=== PATIENT | female | born 1985 | race Caucasian/White ===

== ENCOUNTER 2018-11-24 12:07 | Inpatient (IN) ==
[2018-11-24] MEDS ORDERED: SODIUM CHLORIDE 0.9% 1000ML 1,000 ML IV SCH ×2 (12:30→17:30)
[2018-11-24] MEDS ORDERED: fentaNYL citrate 100 MCG/2 ML VIAL IV ONE (12:34)
[2018-11-24 13:11] LABS: Hematocrit (blood only) 35.1 % (37-47); Hemoglobin 11.7 g/dL (12.0-16.0); Mean Corpuscular Hgb Conc 33.3 g/dL (32-36); Mean Corpuscular Volume 87.3 fL (80-100); Platelet Count 212 K/uL (130-400); RDW Coefficient of Variation 12.8 % (11.5-14.5); RDW Standard Deviation 41.3 fL (36.4-46.3); Red Blood Count 4.02 M/uL (4.2-5.4); White Blood Count 24.83 K/uL (4.8-10.8)
[2018-11-24 13:23] LABS: Partial Thromboplastin Ratio 0.9; Partial Thromboplastin Time 23.4 Seconds (21.0-31.0); Prothrombin Time 10.6 Seconds (9.0-12.0)
[2018-11-24 13:34] LABS: Albumin Level 3.2 gm/dl (3.4-5.0); BUN Creatinine Ratio 38.4 (10-20); Creatinine Clr Calc Pharmacy 105.4 ml/min; Est GFR (African American) 117.6; Est GFR (Non-African American) 101.4; Potassium 2.7 mmol/L (3.5-5.1)
[2018-11-24 13:37] LABS: Albumin Globulin Ratio 0.8 (0.9-2); Bilirubin,Total 0.8 mg/dl (0.2-1); Globulin 4.1 gm/dl (2.5-4.0); Total Protein 7.3 gm/dl (6.4-8.2)
[2018-11-24 13:38] LABS: Basophils # (auto) 0.03 K/uL (0-0.2); Basophils % (auto) 0.1 %; Eosinophils # (auto) 0.02 K/uL (0-0.5); Eosinophils % (auto) 0.1 %; Immature Granulocytes # (auto) 0.09 K/uL (0.00-0.02); Immature Granulocytes % (auto) 0.4 %; Lymphocytes # (auto) 1.43 K/uL (1.2-3.4); Lymphocytes % (auto) 5.8 %; Monocytes % (auto) 3.6 %; Neutrophils # (auto) 22.36 K/uL (1.4-6.5)
[2018-11-24] MEDS ORDERED: POTASSIUM CHLORIDE 20 MEQ/15 ML UDC PO STA (13:59)
[2018-11-24] MEDS ORDERED: MoRPHine SULFATE 4 MG/ML 1 ML CARP\\VIAL IV STA (14:19)
[2018-11-24] MEDS ORDERED: POTASSIUM CHLORIDE 20 MEQ TABCR PO STA (15:15)
--- NOTE | 2018-11-24 15:31 | Emergency Department Note ---
Entered by Amy Fan acting as a scribe for History of Present Illness General Chief complaint: Nose Bleed (Minor) Stated complaint: nasal bleed Time Seen by Provider: 11/24/18 12:19 Source: patient History of Present Illness Provider complaint: Nosebleed Onset (ago): day(s) 2 Location: face Maximum Pain Intensity: 7 Associated symptoms: + other (denies: bowel movement sympoms, urinary symptoms) Treatments prior to arrival: other (Tylenol, allergy medicine) The patient is a 33 year old white female w/ PMHx of HTN and s/p sinus surgery who presents to the ED w/ CC of a intermittent nosebleed beginning 2 days ago. Her family reports the patient had sinus surgery 9 days ago. She was seen in the ED 2 days ago for a nosebleed, and Dr. Caro's office the following morning. Her nose began bleeding again today, 2.5 hours ago. She comes to the ED from Dr. Caro's office, who is at bedside. The patient denies bowel movement symptoms or urinary symptoms. Her LNMP was 3 weeks ago. The patient is not on any blood thinners. She took Tylenol and allergy medicine today. Home Medications Home Medications Medication Instructions Recorded Confirmed Type cetirizine [Zyrtec] 10 mg PO DAILY 11/23/18 11/24/18 History hydrochlorothiazide 25 mg PO DAILY 11/23/18 11/24/18 History magnesium 250 mg PO DAILY 11/23/18 11/24/18 History multivitamin 1 tab PO DAILY 11/23/18 11/24/18 History Allergies Allergy/AdvReac Type Severity Reaction Status Date / Time cefuroxime [From Ceftin] Allergy Intermediate Hives Verified 11/24/18 13:06 ciprofloxacin [From Cipro] Allergy Intermediate Hives Verified 11/24/18 13:06 doxycycline Allergy Intermediate Hives Verified 11/24/18 13:06 Penicillins Allergy Intermediate Hives Verified 11/24/18 13:06 shellfish derived Allergy Intermediate Hives Verified 11/24/18 13:06 sulfamethoxazole Allergy Intermediate Hives Verified 11/24/18 13:06 [From Bactrim] trimethoprim [From Bactrim] Allergy Intermediate Hives Verified 11/24/18 13:06 garlic Allergy Mild Rash Verified 11/24/18 13:06 Past Med/Surg History Medical History Epistaxis (Resolved) Surgical History H/O sinus surgery Social History Preferred Language: Cape Verdean Feels Safe at Home: Yes Smoking Status: Never smoker Review of Systems See HPI for pertinent positives & negatives. and A total of 10 systems reviewed and were otherwise negative Physical Exam Vital Signs Vital Signs - 24 hr 11/24/18 12:12 11/24/18 14:31 Temperature 36.9 C Temperature Source Oral Sepsis Recent Fever Within 48 Hours No Sepsis New/Unexplained Change in Mental Status No Sepsis Action Taken by Nursing No Action Required Pulse Rate 126 H Pulse Rate [Apical] 123 H Pulse Rhythm Regular Pulse Rhythm [Apical] Regular Pulse Strength Normal Pulse Strength [Apical] Normal Respiratory Rate 18 18 Respiratory Effort / Characteristics Non-Labored Spontaneous Non-Labored Spontaneous Respiratory Depth Normal Normal Respiratory Pattern Regular Regular Blood Pressure 132/95 Blood Pressure [Right Arm] 129/88 Blood Pressure Mean 107 Blood Pressure Mean [Right Arm] 101 Pulse Oximetry 97 99 Oxygen Delivery Method Room Air Room Air GENERAL: Uncomfortable in appearance, Mild distress EYE EXAM: Normal conjunctiva. PERRL, no anisocoria and EOM's grossly intact w/o pain. OROPHARYNX: Moist MM. No exudate, no tonsillar/uvular deviation or swelling. Congealed, darker blood in posterior oropharynx. No active streaming. Extensive packing within left nares, scant trace blood right nares. NECK: Supple, no nuchal rigidity, no adenopathy, non-tender. No signs of meningismus. LUNGS: Clear to auscultation. Normal chest wall mechanics. HEART: Tachycardic and regular, no MRG. ABDOMEN: Abdomen soft, non-tender, normo-active bowel sounds, no masses, no rebound or guarding. BACK: No CVA TTP. SKIN: No rashes and no bruising. UPPER EXTREMITIES: Upper extremities are grossly normal. LOWER EXTREMITIES: No pitting edema. No calf pain. NEURO EXAM: A and O x3. GCS 15. [Cranial nerves II-XII grossly intact, normal speech, 5/5 strength throughout] Moves all 4 extremities on command w/o issue. Course 1201: I discussed the case with Alvin Orozco ENT. 1228: The patient was evaluated in room C4, and a complete history and physical examination were performed. 1346: I reviewed the patient's case with Alvin Orozco ENT. 1356: I discussed the patient's case with Jamee Donohue PA-C, [facility]. She will evaluate the patient for further management. 1416: Upon reevaluation, the patient is resting. I discussed test results with the patient and her family. They verbalized agreement with the treatment plan. 1439: I discussed the case with Dr. Phillips, irrigator valve pipe. Consultations Consultation #1: Alvin Orozco ENT. Time: 12:01 Consultation #2: Jamee Donohue PA-C, [facility] hospitalist. Time: 13:56 Consultation #3: Dr. Phillips, irrigator valve pipe. Time: 14:39 Administered Medications Sodium Chloride (Nss 1000ml) 1,000 mls @ 100 mls/hr IV .Q10H UMER Stop: 11/24/18 22:29 Last Admin: 11/24/18 13:13 Dose: 100 mls/hr Documented by: [id number] Discontinued Medications Fentanyl Citrate (Fentanyl Citrate) 50 mcg IV NOW ONE Stop: 11/24/18 12:35 Last Admin: 11/24/18 13:13 Dose: 50 mcg Documented by: [id number] Morphine Sulfate (Morphine Sulfate) 4 mg IV NOW STA Stop: 11/24/18 14:20 Last Admin: 11/24/18 14:27 Dose: 4 mg Documented by: [id number] Potassium Chloride (Tlaita Ciel Elix) 40 meq PO NOW STA Stop: 11/24/18 14:00 Last Admin: 11/24/18 14:07 Dose: 40 meq Documented by: [id number] Medical Decision Making Medical Records Attestation: I reviewed the patient's medical records. Home Medications Current Medication List: was personally reviewed by me Laboratory Data Attestation: I reviewed the patient's lab results. Result diagrams: 11/24/18 12:39 11/24/18 12:39 Lab Results 11/24/18 11/24/18 11/24/18 Range/Units 12:39 12:39 12:39 WBC 24.83 H (4.8-10.8) K/uL RBC 4.02 L (4.2-5.4) M/uL Hgb 11.7 L (12.0-16.0) g/dL Hct 35.1 L (37-47) % MCV 87.3 (80-100) fL MCH 29.1 (25-34) pg MCHC 33.3 (32-36) g/dL RDW Std Deviation 41.3 (36.4-46.3) fL RDW Coeff of Alexander 12.8 (11.5-14.5) % Plt Count 212 (130-400) K/uL MPV 11.0 H (7.4-10.4) fL Immature Gran % (Auto) 0.4 % Neut % (Auto) 90.0 % Lymph % (Auto) 5.8 % [place] % (Auto) 3.6 % Eos % (Auto) 0.1 % Baso % (Auto) 0.1 % Immature Gran # (Auto) 0.09 H (0.00-0.02) K/uL Neut # (Auto) 22.36 H (1.4-6.5) K/uL Lymph # (Auto) 1.43 (1.2-3.4) K/uL [place] # (Auto) 0.90 H (0.11-0.59) K/uL Eos # (Auto) 0.02 (0-0.5) K/uL Baso # (Auto) 0.03 (0-0.2) K/uL PT 10.6 (9.0-12.0) Seconds INR 1.0 (0.9-1.1) APTT 23.4 (21.0-31.0) Seconds PTT Ratio 0.9 Sodium 140 (136-145) mmol/L Potassium 2.7 L (3.5-5.1) mmol/L Chloride 107 (98-107) mmol/L Carbon Dioxide 25 (21-32) mmol/L Anion Gap 9.0 (3-11) BUN 30 H (7-18) mg/dl Creatinine 0.77 (0.6-1.2) mg/dl Est Cr Clr Drug Dosing 105.4 ml/min Est GFR ( Amer) 117.6 Est GFR (Non-Af Amer) 101.4 BUN/Creatinine Ratio 38.4 H (10-20) Glucose 105 H (70-99) mg/dl Calcium 9.0 (8.5-10.1) mg/dl Total Bilirubin 0.8 (0.2-1) mg/dl AST 22 (15-37) U/L ALT 63 (12-78) U/L Alkaline Phosphatase 113 (45-117) U/L Total Protein 7.3 (6.4-8.2) gm/dl Albumin 3.2 L (3.4-5.0) gm/dl Globulin 4.1 H (2.5-4.0) gm/dl Albumin/Globulin Ratio 0.8 L (0.9-2) Blood Type Antibody Screen 11/24/18 Range/Units 12:39 WBC (4.8-10.8) K/uL RBC (4.2-5.4) M/uL Hgb (12.0-16.0) g/dL Hct (37-47) % MCV (80-100) fL MCH (25-34) pg MCHC (32-36) g/dL RDW Std Deviation (36.4-46.3) fL RDW Coeff of Alexander (11.5-14.5) % Plt Count (130-400) K/uL MPV (7.4-10.4) fL Immature Gran % (Auto) % Neut % (Auto) % Lymph % (Auto) % [place] % (Auto) % Eos % (Auto) % Baso % (Auto) % Immature Gran # (Auto) (0.00-0.02) K/uL Neut # (Auto) (1.4-6.5) K/uL Lymph # (Auto) (1.2-3.4) K/uL [place] # (Auto) (0.11-0.59) K/uL Eos # (Auto) (0-0.5) K/uL Baso # (Auto) (0-0.2) K/uL PT (9.0-12.0) Seconds INR (0.9-1.1) APTT (21.0-31.0) Seconds PTT Ratio Sodium (136-145) mmol/L Potassium (3.5-5.1) mmol/L Chloride (98-107) mmol/L Carbon Dioxide (21-32) mmol/L Anion Gap (3-11) BUN (7-18) mg/dl Creatinine (0.6-1.2) mg/dl Est Cr Clr Drug Dosing ml/min Est GFR ( Amer) Est GFR (Non-Af Amer) BUN/Creatinine Ratio (10-20) Glucose (70-99) mg/dl Calcium (8.5-10.1) mg/dl Total Bilirubin (0.2-1) mg/dl AST (15-37) U/L ALT (12-78) U/L Alkaline Phosphatase (45-117) U/L Total Protein (6.4-8.2) gm/dl Albumin (3.4-5.0) gm/dl Globulin (2.5-4.0) gm/dl Albumin/Globulin Ratio (0.9-2) Blood Type O Positive Antibody Screen NEGATIVE ECG Data Attestation: I personally reviewed and interpreted this ECG as follows: Indication: tachycardia Rate (beats per minute): 127 Rhythm: sinus tachycardia Findings: + other (normal intervals. normal axis. ) and + ST depression (mild, lateral) Blood Pressure Blood Pressure Findings: Normal blood pressure Blood Pressure Disposition: did not require urgent referral MDM Narrative The patient is a 33 year old white female w/ PMHx of HTN and s/p sinus surgery who presents to the ED w/ CC of a intermittent nosebleed beginning 2 days ago. Etiologies such as anterior epistaxis, coagulopathy, thrombocytopenia, traumatic injury, fracture, septal hematoma, infection, posterior epistaxis as well as other pathologies were entertained. Patient was seen and evaluated the bedside. The patient did have a recent septoplasty and has had intermittent but mildly persistent worsening nose bleeding over the last 3 days worse today seen in outpatient clinic where she did have posterior pack packing placement did present here. Patient was seen and evaluated the bedside along with the ear nose and throat physician Dr. Mandujano who had performed her outpatient procedure. The patient does have nasal packing in place to the left nares. There is scant blood from the right naris which may have initially come from the left side. The patient does have congealed blood within the posterior pharynx but no active streaming. The patient is not coughing or spitting up any blood. Patient did have blood work completed along with additional IVs and type and screen was obtained. The patient was given pain medication. The patient was tachycardic and does have some slight depressions in the lateral leads which are likely rate related as the patient is not complaining of any chest pain or shortness of breath the patient does not have any prior cardiac or lung history. The patient's blood work does show some mild anemia. Platelet count is normal. Patient does have an elevated white count. Given that the ear nose and throat physician has seen the patient he did not convey concern for infection at this time. Defer antibiotics as this may be a stress reaction given the patient's recent proced ure and associated persistent bleeding. The patient does have a low potassium which was repleted. A magnesium level was added. Coagulation studies are patient was given additional IV fluids. Patient was subsequently seen by the hospitalist. We did briefly discuss the patient's case with the irrigator valve pipe and after discussion we will place the patient in the PCU. Patient was admitted to medicine service. Impression & Plan Epistaxis, Acute hypokalemia Discharge Plan Visit Data Chief Complaint: Nose Bleed (Minor) Stated Complaint: nasal bleed ED Provider: Saw Meade Discharge Problem: Epistaxis, Acute hypokalemia Patient Disposition: Being Evaluated by Hospitalist Forms Stand Alone Forms: My [facility] Prescriptions Prescriptions: No Action multivitamin Tablet 1 tab PO DAILY RF: 0 cetirizine [Zyrtec] 10 mg Tablet 10 mg PO DAILY RF: 0 magnesium 250 mg Tablet 250 mg PO DAILY RF: 0 hydrochlorothiazide 25 mg Tablet 25 mg PO DAILY RF: 0 Referrals Referrals: Phylicia Shelton PA-C [Primary Care Provider] - The scribe's documentation has been prepared under my direction and personally reviewed by me in its entirety. I confirm that the note above accurately reflects all work, treatment, procedures, and medical decision making performed by me.
--- NOTE | 2018-11-24 15:37 | History & Physical Report ---
Date of Service November 24, 2018 Assessment & Plan (1) SIRS (systemic inflammatory response syndrome): (2) Epistaxis: (3) H/O sinus surgery: This is a 33-year-old female who has a significant past medical history of HTN, migraines, seasonal allergies, nephrocalcinosis, history of chronic left maxillary sinusitis and anterior ethmoidal sinusitis, hypertrophy of both inferior nasal turbinates, deviated septum who presents to [facility] ED secondary to epistaxis times 2 days. POD # 9 Nasal and Sinus Surgical Endoscopy using image guidance resulting in:Left anterior ethmoidectomy, Left maxillary sinusotomy with removal of tissue, Septoplasty, Bilateral inferior turbinate reduction by Dr. Caro Posterior Nasal Packing placed by ENT Discussed case with ENT Dr. Caro Discussed case with explosives handler Dr. Morrell/Paulo Gutiérrez PA-C In ED Received IVF x 1 L, IV Fentanyl and morphine for pain -admit pt to PCU -type and cross for [address] units of PRBC to place on hold if HGB < 8.0 -IV Clindamycin Q8hr given leucocytosis, posterior packing, tachycardia --> Pt meeting SIRS criteria -Resuscitation via IV hydration, normal saline +40 M EQ of KCl at 125 per/Hr -Trend H/H , bmp -Afrin to R nare 2 sprays bid to prevent R nare epistaxis -Face tent with cool humidified air for nasal moisture -IV morphine 4mg Q4h prn pain -IV APAP 1g scheduled TID (4) Acute hypokalemia: -Patient unable to tolerate potassium elixir while in ED -will order 40 meq KCl tablet p.o. x1 now and repeat at 9 PM -Further will add 40 M EQ to 1 L normal saline -Repeat BMP at 7 PM and in a.m. (5) HTN (hypertension): -hold HCTZ given hypovolemia/epistaxis and recent hypotension -Recommend decreasing HCTZ to 12.5mg at discharge with a follow up BMP given profound Hypokalemia (6) DVT prophylaxis: -SCDS/Teds Disposition: D/C to home when able Follow up: PCP Phylicia Shelton upon discharge Discussed case with Loft Rigger Dr Morrell/Paulo Gutiérrez PA-C, recommend PCU Patient was seen and examined in collaboration with Dr. Sneed Starting 11/25/18 patient will be under the care of Dr. Alexus Caro cell is [phone], contact with any changes or return of epistaxis not the centralized traffic control operator ENT History of Present Illness Chief Complaint: Epistaxis x 3 days. Primary Care Provider: Phylicia Shelton This is a 33-year-old female who has a significant past medical history of HTN, migraines, seasonal allergies, nephrocalcinosis, history of chronic left maxillary sinusitis and anterior ethmoidal sinusitis, hypertrophy of both inferior nasal turbinates, deviated septum who presents to [facility] ED secondary to epistaxis times 2 days. On 11/15/18 patient underwent left anterior ethmoidectomy, left maxillary sinusotomy, septoplasty and bilateral inferior turbinate reduction. She was doing well postoperatively until postop day #7. She followed up with Dr. Caro and had her septal splints removed. She underwent endoscopic sinus debridement. At the time left inferior turbinate had a removal of a clot with silver nitrate application to the turbinate. The nose was sprayed with Afrin and lidocaine spray. Moderate crusting at the left ethmoid and maxillary sinusotomy sites were noted. She subsequently developed epistaxis which required her to return to his office. Again bleeding had stopped, blood pressure was stable but she was mildly tachycardic. She returned home. Unfortunately pt returned to [facility] clinic today. Rapid response was called in office secondary to significantly low blood pressure 80s over 50s with heart rates above 150s and epistaxis per Dr. Caro. She had a posterior nasal packing placed in office by Dr. Caro and sent to ED for hospitalization. Currently patient is complaining of significant nasal discomfort, 07/31. For now the bleeding has ceased. Further she complains of sore throat, decreased appetite, poor p.o. intake over the past 48 hours. She denies any fever, chills, sweats, lightheadedness, dizziness, chest pain, shortness of breath, palpitations, nausea, emesis, abdominal pain, change in bowel or urinary habits. Family is at bedside and very concerned. Allergies Allergy/AdvReac Type Severity Reaction Status Date / Time cefuroxime [From Ceftin] Allergy Intermediate Hives Verified 11/24/18 13:06 ciprofloxacin [From Cipro] Allergy Intermediate Hives Verified 11/24/18 13:06 doxycycline Allergy Intermediate Hives Verified 11/24/18 13:06 Penicillins Allergy Intermediate Hives Verified 11/24/18 13:06 shellfish derived Allergy Intermediate Hives Verified 11/24/18 13:06 sulfamethoxazole Allergy Intermediate Hives Verified 11/24/18 13:06 [From Bactrim] trimethoprim [From Bactrim] Allergy Intermediate Hives Verified 11/24/18 13:06 garlic Allergy Mild Rash Verified 11/24/18 13:06 Home Medications Home Medications Medication Instructions Recorded Confirmed Type cetirizine [Zyrtec] 10 mg PO DAILY 11/23/18 11/24/18 History hydrochlorothiazide 25 mg PO DAILY 11/23/18 11/24/18 History magnesium 250 mg PO DAILY 11/23/18 11/24/18 History multivitamin 1 tab PO DAILY 11/23/18 11/24/18 History Past Med/Surg History Medical History HTN (hypertension) (Chronic) Nephrocalcinosis (Chronic) Chronic sinusitis (Chronic) Deviated septum (Chronic) Epistaxis (Resolved) Surgical History H/O sinus surgery (Chronic) 11/15/18 1) Nasal and Sinus Surgical Endoscopy using image guidance resulting in: A) Left anterior ethmoidectomy (85339) B) Left maxillary sinusotomy with removal of tissue (97782) #2) Septoplasty (71480) #3) Bilateral inferior turbinate reduction (80539-65) Family History Mother Hypertension Father Hypertension Sister Hypertension Stroke Social History Preferred Language: Malian Communication Ability: Effective Beliefs That Will Affect Care: None marital status details: Engaged Current Living Situation: Significant Other Other Information That Helps Us Care for You: No Feels Safe at Home: Yes Safety Concerns: Feels Safe At This Time Smoking Status: Never smoker Hx Alcohol Use: No Hx Substance Use: No Review of Systems All systems reviewed & are unremarkable except as noted in HPI & below Physical Exam Vital Signs (Past 24 Hours): Last Vital Signs Temp 36.9 C 11/24/18 12:12 Pulse 123 H 11/24/18 14:31 Resp 18 11/24/18 14:31 BP 129/88 11/24/18 14:31 Pulse Ox 99 11/24/18 14:31 Physical Exam: Gen: WD/WN, F, + distress secondary to pain/anxiety, lying in bed, pleasant, difficulty conversing given nasal packing Head: Normocephalic, Atraumatic Eyes: Sclera normal, no conjunctival injection, PERRLA, EOMI ENT: Gross hearing intact, + L nare nasal packing, mucous membranes dry Neck: supple, no adenopathy, No JVD, no bruit, Resp: Clear to auscultation b/l, no wheeze, rales, rhonchi. Normal insp/exp effort, no accessory muscle use CV: tachycardic rate, regular rhythm, no murmur, rub, gallop, or ectopy Abd: +BS x 4, soft, nontender, nondistended Musculoskeletal: moves extremities active rom x 4, strength intact, good drier feeder strength Extremities: No edema bilaterally Skin: warm, moist, no rash, negative turgor, cap refill < 2sec Neuro: Alert and oriented x 3, speech normal, good mood/affect, cran nerve 2-12 intact grossly : deferred Results & Data Laboratory Results Short CBC 11/24/18 Range/Units 12:39 WBC 24.83 H (4.8-10.8) K/uL Hgb 11.7 L (12.0-16.0) g/dL Hct 35.1 L (37-47) % Plt Count 212 (130-400) K/uL BMP 11/24/18 12:39 Sodium 140 Potassium 2.7 L Chloride 107 Carbon Dioxide 25 BUN 30 H Creatinine 0.77 Glucose 105 H Calcium 9.0 Liver Function 11/24/18 Range/Units 12:39 Total Bilirubin 0.8 (0.2-1) mg/dl AST 22 (15-37) U/L ALT 63 (12-78) U/L Alkaline Phosphatase 113 (45-117) U/L Albumin 3.2 L (3.4-5.0) gm/dl Medications Administered Sodium Chloride (Nss 1000ml) 1,000 mls @ 100 mls/hr IV .Q10H UMER Stop: 11/24/18 22:29 Last Admin: 11/24/18 13:13 Dose: 100 mls/hr Documented by: [id number] Discontinued Medications Fentanyl Citrate (Fentanyl Citrate) 50 mcg IV NOW ONE Stop: 11/24/18 12:35 Last Admin: 11/24/18 13:13 Dose: 50 mcg Documented by: [id number] Morphine Sulfate (Morphine Sulfate) 4 mg IV NOW STA Stop: 11/24/18 14:20 Last Admin: 11/24/18 14:27 Dose: 4 mg Documented by: [id number] Potassium Chloride (Talita Ciel Elix) 40 meq PO NOW STA Stop: 11/24/18 14:00 Last Admin: 11/24/18 14:07 Dose: 40 meq Documented by: [id number] ECG Rate (beats per minute): 127 Rhythm: sinus tachycardia Findings: + nonspecific-ST abn Code Status & VTE Plan Code Status Full Code VTE Prophylaxis Plan VTE Prophylaxis will be ordered: Yes Reason for no VTE drug order: Contraindicated Supervising Physician Co-Signing Physician Notes I have seen and examined the patient and have discussed the case with the provider above. I agree with the assessment and plan as stated. 33 yo F with epistaxis and significant pain that is uncontrolled. ENT packing in place. Dr. Caro has evaluated the patient. Physical exam is otherwise unremarkable. Will give oxycodone for additional pain meds now and change morphine to dilaudid. Cont APAP. Clinda for prophylaxis. IVF and potassium repletion PO. Will try to avoid IV potassium in light of its caustic nature. Suspect hypokalemia 2/2 HCTZ use. She was using losartan 25 in the past, and was switched in Jun 2018 to the HCTZ. She was given potassium supplements recently but had not started them. May consider going back on the losartan but just using a higher dose, or using a combination HCTZ/losartan or lis/HCTZ pill to avoid the need for extra supplement pills moving forward. DO Naren
[2018-11-24] MEDS ORDERED: ONDANSETRON INJ 2 MG/ML 2 ML VIAL IV PRN (16:36)
[2018-11-24] MEDS ORDERED: MoRPHine SULFATE 4 MG/ML 1 ML CARP\\VIAL IV PRN (16:36)
[2018-11-24] MEDS ORDERED: MAGNESIUM HYDROXIDE SUSP 30 ML UDC PO PRN (16:36)
[2018-11-24] MEDS ORDERED: POLYETHYLENE (MIRALAX) 17 GM PACK PO PRN (16:36)
[2018-11-24] MEDS ORDERED: ALUMINUM/MAGNESIUM SUSP 30 ML UDC PO PRN (16:36)
[2018-11-24] MEDS ORDERED: OXYCODONE HCL IR 5 MG TAB (IMMEDIATE RELEASE) PO STA (17:11)
[2018-11-24 17:17] LABS: Hematocrit (blood only) 31.4 % (37-47); Hemoglobin 10.5 g/dL (12.0-16.0)
[2018-11-24 17:38] LABS: BUN Creatinine Ratio 35.7 (10-20); Calcium 8.4 mg/dl (8.5-10.1); Creatinine Clr Calc Pharmacy 117.9 ml/min; Est GFR (African American) 133.2; Est GFR (Non-African American) 114.9
[2018-11-24] MEDS: POTASSIUM CHLORIDE 40 MEQ in SODIUM CHLORIDE 0.9% 1000ML 1,000 ML IV SCH (18:36)
[2018-11-24] MEDS: HYDROmorphone INJ 0.5 MG/0.5 ML SYR IV PRN ×2 (18:42→21:02)
[2018-11-24] MEDS: CLINDAMYCIN 600 MG in DEXTROSE 5% 50 ML IV SCH (18:44)
[2018-11-24] MEDS: OXYMETAZOLINE 0.05% 30 ML BTL SCH (20:51)
[2018-11-24] MEDS ORDERED: POTASSIUM CHLORIDE 20 MEQ TABCR PO ONE (21:00)
[2018-11-24] MEDS: OXYCODONE HCL IR 5 MG TAB (IMMEDIATE RELEASE) PO PRN (21:03)
[2018-11-24] MEDS: ACETAMINOPHEN 1,000 MG/100 ML VIAL IV SCH (21:41)
[2018-11-25] MEDS: HYDROmorphone INJ 0.5 MG/0.5 ML SYR IV PRN ×5 (01:32→20:39)
[2018-11-25] MEDS: CLINDAMYCIN 600 MG in DEXTROSE 5% 50 ML IV SCH ×3 (02:00→18:19)
[2018-11-25] MEDS: POTASSIUM CHLORIDE 40 MEQ in SODIUM CHLORIDE 0.9% 1000ML 1,000 ML IV SCH ×3 (02:20→20:40)
[2018-11-25] MEDS: ACETAMINOPHEN 1,000 MG/100 ML VIAL IV SCH ×3 (05:56→21:14)
[2018-11-25 07:33] LABS: Hematocrit (blood only) 26.6 % (37-47); Hemoglobin 8.9 g/dL (12.0-16.0); Mean Corpuscular Hgb Conc 33.5 g/dL (32-36); Mean Corpuscular Volume 87.8 fL (80-100); Mean Platelet Volume 10.7 fL (7.4-10.4); Platelet Count 180 K/uL (130-400); RDW Standard Deviation 42.1 fL (36.4-46.3); Red Blood Count 3.03 M/uL (4.2-5.4); White Blood Count 9.89 K/uL (4.8-10.8)
[2018-11-25 07:53] LABS: BUN Creatinine Ratio 32.6 (10-20); Basophils # (auto) 0.03 K/uL (0-0.2); Basophils % (auto) 0.3 %; Calcium 8.2 mg/dl (8.5-10.1); Creatinine Clr Calc Pharmacy 143.3 ml/min; Eosinophils # (auto) 0.08 K/uL (0-0.5); Eosinophils % (auto) 0.8 %; Est GFR (Non-African American) 122.5; Immature Granulocytes # (auto) 0.06 K/uL (0.00-0.02); Immature Granulocytes % (auto) 0.6 %; Lymphocytes # (auto) 1.82 K/uL (1.2-3.4); Lymphocytes % (auto) 18.4 %; Monocytes # (auto) 0.63 K/uL (0.11-0.59); Monocytes % (auto) 6.4 %; Neutrophils # (auto) 7.27 K/uL (1.4-6.5); Neutrophils % (auto) 73.5 %; Potassium 4.2 mmol/L (3.5-5.1); RBC Morphology Unremarkable
[2018-11-25] MEDS: OXYMETAZOLINE 0.05% 30 ML BTL SCH ×2 (08:39→20:39)
--- NOTE | 2018-11-25 10:46 | Ears,Nose,Throat Progress Note ---
Date of Service November 25, 2018 Assessment & Plan (1) Epistaxis: The drop in her Hct is due to dilution from fluid resuscitation from massive blood loss. She is not actively bleeding, but does remain tachycardic with acceptable BP. I discussed with the OR, Dr. Vaughan, the patient, her parents, and her nurse, Beatrice, the following plan: Depending on her Hct tomorrow, she may or may not require a transfusion prior to surgery. On 11/27/18, she will be taken to the OR late in the morning for removal of her left posterior nasal packing and for endoscopic control of bleeding. She will have a different packing placed after that surgery, and will be sent home on 11/28/18, if there has been no interval bleeding. Dr. Vaughan shared that he will change her diet and make arrangements for her to be up and out of bed to a chair BID. Present on Admission?: Yes Subjective I spoke with patient and family and reviewed the plan for her hospitalization which will be listed under plan. She was in good spirits, and so were her parents. She expressed no active bleeding. I also spoke to her RN, Beatrice, and received and update. Physical Exam Vital Signs (Past 24 Hours): Last Vital Signs Temp 36.6 C 11/25/18 08:08 Pulse 99 H 11/25/18 08:08 Resp 18 11/25/18 08:08 BP 112/71 11/25/18 08:08 Pulse Ox 97 11/25/18 08:08 Physical Exam: Her packing was in good position on the left with no excessive compression of the nares. There was no active bleeding. Results & Data Laboratory Results Laboratory Results - last 48 hr 11/24/18 11/24/18 11/24/18 12:39 12:39 12:39 WBC 24.83 H RBC 4.02 L Hgb 11.7 L Hct 35.1 L MCV 87.3 MCH 29.1 MCHC 33.3 RDW Std Deviation 41.3 RDW Coeff of Alexander 12.8 Plt Count 212 MPV 11.0 H Immature Gran % (Auto) 0.4 Neut % (Auto) 90.0 Lymph % (Auto) 5.8 [place] % (Auto) 3.6 Eos % (Auto) 0.1 Baso % (Auto) 0.1 Immature Gran # (Auto) 0.09 H Neut # (Auto) 22.36 H Lymph # (Auto) 1.43 [place] # (Auto) 0.90 H Eos # (Auto) 0.02 Baso # (Auto) 0.03 RBC Morphology PT 10.6 INR 1.0 APTT 23.4 PTT Ratio 0.9 Sodium 140 Potassium 2.7 L Chloride 107 Carbon Dioxide 25 Anion Gap 9.0 BUN 30 H Creatinine 0.77 Est Cr Clr Drug Dosing 105.4 Est GFR ( Amer) 117.6 Est GFR (Non-Af Amer) 101.4 BUN/Creatinine Ratio 38.4 H Glucose 105 H Calcium 9.0 Magnesium Total Bilirubin 0.8 AST 22 ALT 63 Alkaline Phosphatase 113 Total Protein 7.3 Albumin 3.2 L Globulin 4.1 H Albumin/Globulin Ratio 0.8 L HCG, Quant Blood Type Blood Type Recheck Antibody Screen Crossmatch 11/24/18 11/24/18 11/24/18 12:39 12:39 13:00 WBC RBC Hgb Hct MCV MCH MCHC RDW Std Deviation RDW Coeff of Alexander Plt Count MPV Immature Gran % (Auto) Neut % (Auto) Lymph % (Auto) [place] % (Auto) Eos % (Auto) Baso % (Auto) Immature Gran # (Auto) Neut # (Auto) Lymph # (Auto) [place] # (Auto) Eos # (Auto) Baso # (Auto) RBC Morphology PT INR APTT PTT Ratio Sodium Potassium Chloride Carbon Dioxide Anion Gap BUN Creatinine Est Cr Clr Drug Dosing Est GFR ( Amer) Est GFR (Non-Af Amer) BUN/Creatinine Ratio Glucose Calcium Magnesium 2.2 Total Bilirubin AST ALT Alkaline Phosphatase Total Protein Albumin Globulin Albumin/Globulin Ratio HCG, Quant < 1 Blood Type O Positive Blood Type Recheck Antibody Screen NEGATIVE Crossmatch See Detail 11/24/18 11/24/18 11/24/18 17:01 17:01 17:01 WBC RBC Hgb 10.5 L Hct 31.4 L MCV MCH MCHC RDW Std Deviation RDW Coeff of Alexander Plt Count MPV Immature Gran % (Auto) Neut % (Auto) Lymph % (Auto) [place] % (Auto) Eos % (Auto) Baso % (Auto) Immature Gran # (Auto) Neut # (Auto) Lymph # (Auto) [place] # (Auto) Eos # (Auto) Baso # (Auto) RBC Morphology PT INR APTT PTT Ratio Sodium 142 Potassium 3.0 L Chloride 108 H Carbon Dioxide 25 Anion Gap 9.0 BUN 24 H Creatinine 0.68 Est Cr Clr Drug Dosing 117.9 Est GFR ( Amer) 133.2 Est GFR (Non-Af Amer) 114.9 BUN/Creatinine Ratio 35.7 H Glucose 101 H Calcium 8.4 L Magnesium Total Bilirubin AST ALT Alkaline Phosphatase Total Protein Albumin Globulin Albumin/Globulin Ratio HCG, Quant Blood Type Blood Type Recheck O Positive Antibody Screen Crossmatch 11/25/18 11/25/18 06:44 06:44 WBC 9.89 D RBC 3.03 L Hgb 8.9 L Hct 26.6 L MCV 87.8 MCH 29.4 MCHC 33.5 RDW Std Deviation 42.1 RDW Coeff of Alexander 13.0 Plt Count 180 MPV 10.7 H Immature Gran % (Auto) 0.6 Neut % (Auto) 73.5 Lymph % (Auto) 18.4 [place] % (Auto) 6.4 Eos % (Auto) 0.8 Baso % (Auto) 0.3 Immature Gran # (Auto) 0.06 H Neut # (Auto) 7.27 H Lymph # (Auto) 1.82 [place] # (Auto) 0.63 H Eos # (Auto) 0.08 Baso # (Auto) 0.03 RBC Morphology Unremarkable PT INR APTT PTT Ratio Sodium 145 Potassium 4.2 D Chloride 117 H Carbon Dioxide 23 Anion Gap 5.0 BUN 18 Creatinine 0.56 L Est Cr Clr Drug Dosing 143.3 Est GFR ( Amer) 142.0 Est GFR (Non-Af Amer) 122.5 BUN/Creatinine Ratio 32.6 H Glucose 112 H Calcium 8.2 L Magnesium Total Bilirubin AST ALT Alkaline Phosphatase Total Protein Albumin Globulin Albumin/Globulin Ratio HCG, Quant Blood Type Blood Type Recheck Antibody Screen Crossmatch
--- NOTE | 2018-11-25 12:44 | Hospitalist Progress Note ---
Date of Service November 25, 2018 Assessment & Plan (1) SIRS (systemic inflammatory response syndrome): (2) Epistaxis: Admitted with significant nosebleed Has posterior nasal packing on the right side Patient denies any more bleeding Hemoglobin remains stable Discussed with ENT specialist and management as per his recommendation Hemoglobin minimally down to 8.9 and is complicated by use of normal saline We will monitor H&H (3) H/O sinus surgery: Note from admitting physician This is a 33-year-old female who has a significant past medical history of HTN, migraines, seasonal allergies, nephrocalcinosis, history of chronic left maxillary sinusitis and anterior ethmoidal sinusitis, hypertrophy of both inferior nasal turbinates, deviated septum who presents to [facility] ED secondary to epistaxis times 2 days. POD # 9 Nasal and Sinus Surgical Endoscopy using image guidance resulting in:Left anterior ethmoidectomy, Left maxillary sinusotomy with removal of tissue, Septoplasty, Bilateral inferior turbinate reduction by Dr. Caro Posterior Nasal Packing placed by ENT Discussed case with ENT Dr. Caro Discussed case with drafter civil (cad) Dr. Morrell/Paulo Gutiérrez PA-C -type and cross for [address] units [address] PRBC to place on hold if HGB < 8.0 -IV Clindamycin Q8hr given leucocytosis, posterior packing, tachycardia --> Pt meeting SIRS criteria -Resuscitation via IV hydration, normal saline +40 M EQ of KCl at 125 per/Hr -Trend H/H , bmp -Afrin to R nare 2 sprays bid to prevent R nare epistaxis -Face tent with cool humidified air for nasal moisture -IV morphine 4mg Q4h prn pain 4/6 Remains stable without any more bleeding (4) Acute hypokalemia: -Patient unable to tolerate potassium elixir while in ED -will order 40 meq KCl tablet p.o. x1 now and repeat at 9 PM -Further will add 40 M EQ to 1 L normal saline -Admission potassium was 2.7, received adequate supplement -Potassium today is 4.2 (5) HTN (hypertension): -hold HCTZ given hypovolemia/epistaxis and recent hypotension -Recommend decreasing HCTZ to 12.5mg at discharge with a follow up BMP given profound Hypokalemia (6) DVT prophylaxis: -SCDS/Teds Disposition: D/C to home when able Follow up: PCP Phylicia Shelton upon discharge Subjective 33-year-old female with the epistaxis following recent nasal procedure Has left nasal packing in place Denies any significant bleeding Denies any other symptoms Physical Exam Vital Signs (Past 24 Hours): Last Vital Signs Temp 36.6 C 11/25/18 11:47 Pulse 107 H 11/25/18 11:47 Resp 19 11/25/18 11:47 BP 122/73 11/25/18 11:47 Pulse Ox 97 11/25/18 11:47 Physical Exam: Anxious without any distress Constitutional: WD/WN, vitals as above Eyes: PERRL, conjunctivae normal, anicteric sclerae ENMT: Nose: + external nose abnormality (Has right nasal packing in place without any evidence of bleeding) Neck: trachea midline, no thyromegaly Respiratory: normal respiratory effort, lungs clear to auscultation Cardiovascular: Rate/Rhythm: regular rate and regular rhythm Heart Sounds: normal S1 and normal S2 Gastrointestinal (Abdomen): normal bowel sounds, soft, nontender, no hepatosplenomegaly Neurologic: Alert, awake and oriented x3 Results & Data Laboratory Results Short CBC 11/24/18 11/24/18 11/25/18 Range/Units 12:39 17:01 06:44 WBC 24.83 H 9.89 D (4.8-10.8) K/uL Hgb 11.7 L 10.5 L 8.9 L (12.0-16.0) g/dL Hct 35.1 L 31.4 L 26.6 L (37-47) % Plt Count 212 180 (130-400) K/uL BMP 11/24/18 11/24/18 11/25/18 12:39 17:01 06:44 Sodium 140 142 145 Potassium 2.7 L 3.0 L 4.2 D Chloride 107 108 H 117 H Carbon Dioxide 25 25 23 BUN 30 H 24 H 18 Creatinine 0.77 0.68 0.56 L Glucose 105 H 101 H 112 H Calcium 9.0 8.4 L 8.2 L Liver Function 11/24/18 Range/Units 12:39 Total Bilirubin 0.8 (0.2-1) mg/dl AST 22 (15-37) U/L ALT 63 (12-78) U/L Alkaline Phosphatase 113 (45-117) U/L Albumin 3.2 L (3.4-5.0) gm/dl Medications Administered Current Inpatient Medications Acetaminophen (Tylenol) 650 mg PO Q4H PRN PRN Reason: Pain or Fever Stop: 12/24/18 16:35 Al Hydrox/Mg Hydrox/Simethicone (Maalox) 15 ml PO Q4H PRN PRN Reason: Dyspepsia Stop: 12/24/18 16:35 Hydromorphone HCl (Dilaudid) 0.5 mg IV Q1H PRN PRN Reason: Severe Pain Stop: 12/08/18 17:09 Last Admin: 11/25/18 08:50 Dose: 0.5 mg Documented by: Potassium Chloride 40 meq/ (Sodium Chloride) 1,020 mls @ 125 mls/hr IV .Q8H10M [facility] Stop: 12/24/18 16:59 Last Admin: 11/25/18 11:13 Dose: 125 mls/hr Documented by: Clindamycin Phosphate 600 mg/ (Dextrose) 54 mls @ 100 mls/hr IV Q8H [facility] Stop: 12/04/18 17:59 Last Infusion: 11/25/18 11:50 Dose: Infused Documented by: Acetaminophen (Ofirmev) 1,000 mg in 100 mls @ 400 mls/hr IV Q8H [facility] Stop: 12/24/18 21:59 Last Infusion: 11/25/18 06:11 Dose: Infused Documented by: Magnesium Hydroxide (Milk Of Magnesia) 30 ml PO Q12H PRN PRN Reason: Constipation Stop: 12/24/18 16:35 Ondansetron HCl (Zofran) 4 mg IV Q6H PRN PRN Reason: Nausea Stop: 12/24/18 16:35 Last Admin: 11/24/18 18:42 Dose: 4 mg Documented by: Oxycodone HCl (Roxicodone Immediate Rel) 5 mg PO Q4H PRN PRN Reason: Severe Pain Stop: 12/08/18 17:10 Last Admin: 11/24/18 21:03 Dose: 5 mg Documented by: Oxymetazoline HCl (Afrin 0.05%) 2 sprays NA BID [facility] Stop: 12/24/18 20:59 Last Admin: 11/25/18 08:39 Dose: 2 sprays Documented by: Polyethylene Glycol (Miralax Powder Packet) 17 gm PO DAILY PRN PRN Reason: Constipation Stop: 12/24/18 16:35
--- NOTE | 2018-11-25 16:27 | Ears,Nose,Throat Progress Note ---
Date of Service November 25, 2018 Assessment & Plan (1) Epistaxis: She did not have a new bleed. Rather, clot from yesterday's left side bleeding was still located in the nasopharynx. This had started to lyse, and this ran out the only side it could, the open right side. As the patient is unable to breathe through her nose, due to the balloon in her nasopharynx, there was no good reason to maintain the patency of the right nostril. Therefore, to prevent the slight possibility of bleeding from the right nares, the Surgicel and Bactroban was placed. She should do well. I will return to see her tomorrow morning. Present on Admission?: Yes Subjective By phone, the patient's nurse, Shilo, informed me that she had some oozing of blood from the right nostril when she got up to use the restroom. I asked Shilo to get the ENT cart to the room, and shared that I was outside the hospital, but would be straight over to room 212. When I arrived, the patient shared that she has been holding gauze against her nose with no further bleeding. Physical Exam Vital Signs (Past 24 Hours): Last Vital Signs Temp 36.5 C 11/25/18 15:39 Pulse 125 H 11/25/18 15:39 Resp 16 11/25/18 15:39 BP 131/86 11/25/18 15:39 Pulse Ox 100 11/25/18 15:39 Constitutional: High wall suction with #9 Jama tipped suction, halogen headlight, nasal speculum were used along with bayonet and Surgicel with Bactroban. I examined the gauze the patient had been using, and there was about 1 ml of old dark blood on the gauze. Exam of the right side of the nose showed showed no active bleeding. I suction ed mucous and old clot. No bleeding from the right inferior turbinate. Surgicel with Bactroban was inserted without difficulty between the right inferior turbinate and septum.
[2018-11-25] MEDS: CETIRIZINE HCL 10 MG TABLET PO SCH (20:39)
[2018-11-25] MEDS ORDERED: POTASSIUM CHLORIDE 20 MEQ TABCR PO ONE (21:00)
[2018-11-26] MEDS: CLINDAMYCIN 600 MG in DEXTROSE 5% 50 ML IV SCH ×3 (01:33→18:20)
[2018-11-26] MEDS: HYDROmorphone INJ 0.5 MG/0.5 ML SYR IV PRN ×3 (01:38→21:37)
[2018-11-26] MEDS: ACETAMINOPHEN 1,000 MG/100 ML VIAL IV SCH ×3 (05:07→22:33)
[2018-11-26] MEDS: POTASSIUM CHLORIDE 40 MEQ in SODIUM CHLORIDE 0.9% 1000ML 1,000 ML IV SCH ×3 (05:07→21:36)
[2018-11-26 06:15] LABS: Basophils # (auto) 0.02 K/uL (0-0.2); Basophils % (auto) 0.2 %; Eosinophils # (auto) 0.25 K/uL (0-0.5); Eosinophils % (auto) 2.9 %; Hematocrit (blood only) 23.9 % (37-47); Hemoglobin 7.8 g/dL (12.0-16.0); Immature Granulocytes # (auto) 0.06 K/uL (0.00-0.02); Immature Granulocytes % (auto) 0.7 %; Lymphocytes # (auto) 1.99 K/uL (1.2-3.4); Lymphocytes % (auto) 23.5 %; Mean Corpuscular Hgb Conc 32.6 g/dL (32-36); Mean Corpuscular Volume 89.5 fL (80-100); Mean Platelet Volume 10.5 fL (7.4-10.4); Monocytes # (auto) 0.54 K/uL (0.11-0.59); Monocytes % (auto) 6.4 %; Neutrophils # (auto) 5.62 K/uL (1.4-6.5); Neutrophils % (auto) 66.3 %; Platelet Count 166 K/uL (130-400); RDW Coefficient of Variation 12.8 % (11.5-14.5); RDW Standard Deviation 41.1 fL (36.4-46.3); Red Blood Count 2.67 M/uL (4.2-5.4); White Blood Count 8.48 K/uL (4.8-10.8)
[2018-11-26 06:36] LABS: BUN Creatinine Ratio 13.2 (10-20); Blood Urea Nitrogen 6 mg/dl (7-18); Calcium 8.1 mg/dl (8.5-10.1); Carbon Dioxide 27 mmol/L (21-32); Chloride 113 mmol/L (98-107); Creatinine Clr Calc Pharmacy 170.6 ml/min; Est GFR (African American) > 150.0; Est GFR (Non-African American) 129.8; Glucose 91 mg/dl (70-99); Magnesium 2.1 mg/dl (1.8-2.4); Potassium 3.7 mmol/L (3.5-5.1); Sodium 142 mmol/L (136-145)
[2018-11-26] MEDS: CETIRIZINE HCL 10 MG TABLET PO SCH (08:53)
[2018-11-26] MEDS: OXYMETAZOLINE 0.05% 30 ML BTL SCH ×2 (08:54→21:28)
--- NOTE | 2018-11-26 09:00 | Ears,Nose,Throat Progress Note ---
Date of Service November 26, 2018 Assessment & Plan (1) Epistaxis: I talked with Dr. Vaughan about making her n.p.o. after midnight tonight. I provided informed consent which included the indications, risks, benefits, and alternatives to the surgical procedure which is removal of posterior nasal pack with endoscopic control of epistaxis. There was an opportunity for questions and answers. The patient and I signed the consent form with Dr. Vaughan as the witness. After surgery, she will be observed for 1 more day and night. The plan will then be for her to be go home to go home on November 28. I will see her back in the office on November 30. Present on Admission?: Yes Subjective The patient appeared to be in good spirits, and I explained that she was doing well and there has been no bleeding since she was packed on 11/24/18. I then explained that the rest of her changes in her blood count have just been to dilutional effect. We discussed the benefits of having a transfusion before surgery, and I also had discussed this with Dr. Vaughan who was present to discuss this with the patient. He then proceeded to provide informed consent for the transfusion of one unit of packed red blood cells today. The reasoning is that she will be going home after surgery, and lives over [place] from [facility]. If she were to bleed at home, she would have very little margin for safety, and this could lead to a life threatening event on the drive back to [facility]. Physical Exam Vital Signs (Past 24 Hours): Last Vital Signs Temp 36.8 C 11/26/18 07:39 Pulse 99 H 11/26/18 07:39 Resp 24 11/26/18 07:39 BP 121/83 11/26/18 07:39 Pulse Ox 100 11/26/18 07:39 Physical Exam: Her skin color looked good. There was no bleeding from the nose or the mouth. Her packing was in good position.
[2018-11-26] MEDS ORDERED: SODIUM CHLORIDE 0.9% 250 ML IV PRN (10:16)
--- NOTE | 2018-11-26 11:51 | Hospitalist Progress Note ---
Date of Service November 26, 2018 Assessment & Plan (1) SIRS (systemic inflammatory response syndrome): (2) Epistaxis: Admitted with significant nosebleed Has posterior nasal packing on the right side Patient denies any more bleeding Hemoglobin remains stable Discussed with ENT specialist and management as per his recommendation Hemoglobin minimally down to 8.9 and is complicated by use of normal saline We will monitor H&Hhemoglobin dropped to 7.[address] Caro and the patient She will received 1 unit of PRBC N.p.o. after midnight for proposed surgical intervention tomorrow as per Dr. Caro (3) H/O sinus surgery: Note from admitting physician This is a 33-year-old female who has a significant past medical history of HTN, migraines, seasonal allergies, nephrocalcinosis, history of chronic left maxillary sinusitis and anterior ethmoidal sinusitis, hypertrophy of both inferior nasal turbinates, deviated septum who presents to [facility] ED secondary to epistaxis times 2 days. POD # 9 Nasal and Sinus Surgical Endoscopy using image guidance resulting in:Left anterior ethmoidectomy, Left maxillary sinusotomy with removal of tissue, Septoplasty, Bilateral inferior turbinate reduction by Dr. Caro Posterior Nasal Packing placed by ENT Discussed case with ENT Dr. Caro Discussed case with steam cleaning machine operator Dr. Morrell/Paulo Gutiérrez PA-C -type and cross for [address] PRBC to [address] on hold if HGB < 8.0 -IV Clindamycin Q8hr given leucocytosis, posterior packing, tachycardia --> Pt meeting SIRS criteria -Resuscitation via IV hydration, normal saline +40 M EQ of KCl at 125 per/Hr -Trend H/H , bmp -Afrin to R nare 2 sprays bid to prevent R nare epistaxis -Face tent with cool humidified air for nasal moisture -IV morphine 4mg Q4h prn pain 11/26 Remains stable without any more bleeding Will receive 1 unit of blood transfusion for drop in hemoglobin to 7.8 (4) Acute hypokalemia: -Patient unable to tolerate potassium elixir while in ED -will order 40 meq KCl tablet p.o. x1 now and repeat at 9 PM -Further will add 40 M EQ to 1 L normal saline -Admission potassium was 2.7, received adequate supplement -Potassium is 4.2 on 11/25 -3.7 on 11/26 (5) HTN (hypertension): -hold HCTZ given hypovolemia/epistaxis and recent hypotension -Recommend decreasing HCTZ to 12.5mg at discharge with a follow up BMP given pro found Hypokalemia -Blood pressure is controlled right now -Hydrochlorothiazide is on hold and likely to be decreased in dose or discontinued at discharge -If it is prescribed eventually reducing dose the patient will likely need supplemental potassium (6) DVT prophylaxis: -SCDS/Teds Disposition: D/C to home when able Follow up: PCP Phylicia Shelton upon discharge Subjective 33-year-old female with the epistaxis following recent nasal procedure Has left nasal packing in place Denies any significant bleeding Denies any other symptoms 11/26 The patient was seen and examined in the telemetry unit She denies any more nasal bleeding or any blood test in third Her hemoglobin is dropped to 7.8 today She denies any symptoms related to low hemoglobin Physical Exam Vital Signs (Past 24 Hours): Last Vital Signs Temp 36.5 C 11/26/18 11:30 Pulse 111 H 11/26/18 11:30 Resp 18 11/26/18 11:30 BP 116/80 11/26/18 11:30 Pulse Ox 99 11/26/18 11:30 Physical Exam: Discomfort due to left nasal packing in situ Constitutional: WD/WN, vitals as above Eyes: PERRL, conjunctivae normal, anicteric sclerae ENMT: Nose: + external nose abnormality (Has right nasal packing in place without any evidence of bleeding) Neck: trachea midline, no thyromegaly Respiratory: normal respiratory effort, lungs clear to auscultation Cardiovascular: Rate/Rhythm: regular rate and regular rhythm Heart Sounds: normal S1 and normal S2 Gastrointestinal (Abdomen): normal bowel sounds, soft, nontender, no hepatosplenomegaly Musculoskeletal: no cyanosis or clubbing, extremities motor strength 5/5 Neurologic: Alert, awake and oriented x3 Results & Data Laboratory Results Short CBC 11/26/18 Range/Units 05:49 WBC 8.48 (4.8-10.8) K/uL Hgb 7.8 L (12.0-16.0) g/dL Hct 23.9 L (37-47) % Plt Count 166 (130-400) K/uL BMP 11/26/18 05:49 Sodium 142 Potassium 3.7 Chloride 113 H Carbon Dioxide 27 BUN 6 L D Creatinine 0.47 L Glucose 91 Calcium 8.1 L Medications Administered Current Inpatient Medications Acetaminophen (Tylenol) 650 mg PO Q4H PRN PRN Reason: Pain or Fever Stop: 12/24/18 16:35 Al Hydrox/Mg Hydrox/Simethicone (Maalox) 15 ml PO Q4H PRN PRN Reason: Dyspepsia Stop: 12/24/18 16:35 Cetirizine HCl (Zyrtec) 10 mg PO DAILY [facility] Stop: 12/25/18 19:44 Last Admin: 11/26/18 08:53 Dose: 10 mg Documented by: Hydromorphone HCl (Dilaudid) 0.5 mg IV Q1H PRN PRN Reason: Severe Pain Stop: 12/08/18 17:09 Last Admin: 11/26/18 05:14 Dose: 0.5 mg Documented by: Potassium Chloride 40 meq/ (Sodium Chloride) 1,020 mls @ 125 mls/hr IV .Q8H10M [facility] Stop: 12/24/18 16:59 Last Admin: 11/26/18 05:07 Dose: 125 mls/hr Documented by: Clindamycin Phosphate 600 mg/ (Dextrose) 54 mls @ 100 mls/hr IV Q8H [facility] Stop: 12/04/18 17:59 Last Infusion: 11/26/18 10:47 Dose: Infused Documented by: Acetaminophen (Ofirmev) 1,000 mg in 100 mls @ 400 mls/hr IV Q8H [facility] Stop: 12/24/18 21:59 Last Infusion: 11/26/18 05:29 Dose: Infused Documented by: Sodium Chloride (Nss) 250 mls @ 15 mls/hr IV .[id number] PRN PRN Reason: For Transfusion Stop: 12/26/18 10:15 Magnesium Hydroxide (Milk Of Magnesia) 30 ml PO Q12H PRN PRN Reason: Constipation Stop: 12/24/18 16:35 Ondansetron HCl (Zofran) 4 mg IV Q6H PRN PRN Reason: Nausea Stop: 12/24/18 16:35 Last Admin: 11/24/18 18:42 Dose: 4 mg Documented by: Oxycodone HCl (Roxicodone Immediate Rel) 5 mg PO Q4H PRN PRN Reason: Severe Pain Stop: 12/08/18 17:10 Last Admin: 11/24/18 21:03 Dose: 5 mg Documented by: Oxymetazoline HCl (Afrin 0.05%) 2 sprays NA BID [facility] Stop: 12/24/18 20:59 Last Admin: 11/26/18 08:54 Dose: Not Given Documented by: Polyethylene Glycol (Miralax Powder Packet) 17 gm PO DAILY PRN PRN Reason: Constipation Stop: 12/24/18 16:35
[2018-11-26 17:27] LABS: Hematocrit (blood only) 30.4 % (37-47); Hemoglobin 10.2 g/dL (12.0-16.0)
--- NOTE | 2018-11-26 18:17 | Anesthesiology Consultation ---
Date of Service November 26, 2018 Assessment & Plan Chart Review Chart Review: Acceptable Risk for Surgery and Patient NOT seen in Pre Admission Testing Consults Requested none Patient will sign consent for anesthesia in am prior to surgery ASA [id number] Proposed Anesthesia Anesthesia Type: General History Height/Weight Height: 5 ft 4 in Weight: 76.6 kg Allergies Allergy/AdvReac Type Severity Reaction Status Date / Time cefuroxime [From Ceftin] Allergy Intermediate Hives Verified 11/24/18 13:06 ciprofloxacin [From Cipro] Allergy Intermediate Hives Verified 11/24/18 13:06 doxycycline Allergy Intermediate Hives Verified 11/24/18 13:06 Penicillins Allergy Intermediate Hives Verified 11/24/18 13:06 shellfish derived Allergy Intermediate Hives Verified 11/24/18 13:06 sulfamethoxazole Allergy Intermediate Hives Verified 11/24/18 13:06 [From Bactrim] trimethoprim [From Bactrim] Allergy Intermediate Hives Verified 11/24/18 13:06 garlic Allergy Mild Rash Verified 11/24/18 13:06 Medications Home Medications Medication Instructions Recorded Confirmed Last Taken cetirizine [Zyrtec] 10 mg PO DAILY 11/23/18 11/24/18 11/24/18 hydrochlorothiazide 25 mg PO DAILY 11/23/18 11/24/18 11/22/18 magnesium 250 mg PO DAILY 11/23/18 11/24/18 11/22/18 multivitamin 1 tab PO DAILY 11/23/18 11/24/18 11/22/18 Active Medications Generic Name Dose Route Start Last Admin Trade Name Freq PRN Reason Stop Dose Admin Cetirizine HCl 10 mg 11/25/18 19:45 11/26/18 08:53 Zyrtec PO 12/25/18 19:44 10 mg DAILY UMER Administration Hydromorphone HCl 0.5 mg 11/24/18 17:10 11/26/18 05:14 Dilaudid IV 12/08/18 17:09 0.5 mg Q1H PRN Administration Severe Pain Potassium Chloride 40 meq/ 1,020 mls @ 125 mls/hr 11/24/18 17:00 11/26/18 13:51 Sodium Chloride IV 12/24/18 16:59 125 mls/hr .Q8H10M UMER Administration Clindamycin Phosphate 600 mg/ 54 mls @ 100 mls/hr 11/24/18 18:00 11/26/18 10:47 Dextrose IV 12/04/18 17:59 Infused Q8H UMER Infusion Acetaminophen 1,000 mg in 100 mls @ 400 mls/hr 11/24/18 22:00 11/26/18 14:23 Ofirmev IV 12/24/18 21:59 Infused Q8H UMER Infusion Ondansetron HCl 4 mg 11/24/18 16:36 11/24/18 18:42 Zofran IV 12/24/18 16:35 4 mg Q6H PRN Administration Nausea Oxycodone HCl 5 mg 11/24/18 17:11 11/24/18 21:03 Roxicodone Immediate Rel PO 12/08/18 17:10 5 mg Q4H PRN Administration Severe Pain Oxymetazoline HCl 2 sprays 11/24/18 21:00 11/26/18 08:54 Afrin 0.05% NA 12/24/18 20:59 Not Given BID UMER Past Medical History Medical History HTN (hypertension) (Chronic) Nephrocalcinosis (Chronic) Chronic sinusitis (Chronic) Deviated septum (Chronic) Epistaxis (Resolved) Anemia Obese Past Family History Family History Mother Hypertension Father Hypertension Sister Hypertension Stroke Past Surgical History Surgical History H/O sinus surgery (Chronic) 11/15/18 1) Nasal and Sinus Surgical Endoscopy using image guidance resulting in: A) Left anterior ethmoidectomy (07021) B) Left maxillary sinusotomy with removal of tissue (53620) #2) Septoplasty (27139) #3) Bilateral inferior turbinate reduction (41536-43) Past Anesthesia History No Hx of Anesthesia Complications and No Family Hx of Anesthesia Complications History of PONV Yes Motion Sickness Screening History of Motion Sickness: No Social History Smoking Status: Never smoker Do You Dip or Chew Tobacco: No Hx Alcohol Use: No Hx Substance Use: No Exercise / Class Metabolic Activity II 4-5 Yardwork/Stairs/Walk up hill Physical Exam Vital Signs Last Vital Signs Temp 37.3 C 11/26/18 15:44 Pulse 107 H 11/26/18 15:44 Resp 18 11/26/18 15:44 BP 117/78 11/26/18 15:44 Pulse Ox 98 11/26/18 15:44 Constitutional + obese ENMT Mouth: no dentition abnormality Thyromental Distance: > or= 3.5 Finger Breadths Mallampati Class: II Neck normal visual inspection and trachea midline; neck extension not limited Respiratory normal respiratory effort Auscultation: lungs clear to auscultation bilaterally Cardiovascular Rate/Rhythm: regular rate and regular rhythm Heart Sounds: no murmur Musculoskeletal Spine: normal cervical ROM Neurologic moves all extremities Motor/Sensory: no sensory deficit Psychiatric Orientation: alert and oriented x 3 Testing Electrocardiogram Date: 11/24/18 Findings: + ST @ (at 114;NS ST abnormality) Laboratory Results 11/26/18 17:04 11/26/18 05:49 Blood Type O Positive 11/24/18 12:39 Antibody Screen NEGATIVE 11/24/18 12:39 PT 10.6 Seconds (9.0-12.0) 11/24/18 12:39 INR 1.0 (0.9-1.1) 11/24/18 12:39 APTT 23.4 Seconds (21.0-31.0) 11/24/18 12:39 HCG, Quant < 1 mIU/ml 11/24/18 13:00 11/24/18 13:00 HCG, Quant < 1
[2018-11-27] MEDS: CLINDAMYCIN 600 MG in DEXTROSE 5% 50 ML IV SCH ×3 (03:13→17:17)
[2018-11-27] MEDS: POTASSIUM CHLORIDE 40 MEQ in SODIUM CHLORIDE 0.9% 1000ML 1,000 ML IV SCH (05:44)
[2018-11-27] MEDS: ACETAMINOPHEN 1,000 MG/100 ML VIAL IV SCH (07:15)
[2018-11-27] MEDS: OXYMETAZOLINE 0.05% 30 ML BTL SCH ×2 (08:16→21:49)
[2018-11-27] MEDS: CETIRIZINE HCL 10 MG TABLET PO SCH (08:16)
[2018-11-27] MEDS ORDERED: BACITRACIN INJ 50,000 UNIT VIAL ONE (10:05)
[2018-11-27] MEDS ORDERED: SUCCINYLCHOLINE CHLORIDE 20 MG/ML 10 ML VIAL ONE (10:09)
[2018-11-27] MEDS ORDERED: PROPOFOL IV EMULSION 10 MG/ML 20 ML VIAL IV ONE (10:09)
[2018-11-27] MEDS ORDERED: NEOSTIGMINE METHYLSULFATE 5 MG/5 ML SYR ONE (10:09)
[2018-11-27] MEDS ORDERED: ONDANSETRON INJ 2 MG/ML 2 ML VIAL ONE (10:09)
[2018-11-27] MEDS ORDERED: LIDOCAINE HCL 2% 2 ML VIAL/AMP(20MG/ML) INFIL ONE (10:09)
[2018-11-27] MEDS ORDERED: ePHEDrine sulfate 50 MG/ML AMP ONE (10:09)
[2018-11-27] MEDS ORDERED: GLYCOPYRROLATE 0.2 MG/ML VIAL ONE (10:09)
[2018-11-27] MEDS ORDERED: MIDAZOLAM HCL 1 MG/ML 2ML VIAL ONE (10:09)
[2018-11-27] MEDS ORDERED: DEXAMETHASONE SOD INJ 4 MG/ML VIAL ONE (10:09)
[2018-11-27] MEDS ORDERED: PHENYLEPHRINE HCL 10 MG/ML VIAL ONE (10:09)
[2018-11-27] MEDS ORDERED: ONDANSETRON INJ 2 MG/ML 2 ML VIAL IV PRN (10:10)
[2018-11-27] MEDS ORDERED: ePHEDrine sulfate 50 MG/ML AMP IV PRN (10:10)
[2018-11-27] MEDS ORDERED: ATROPINE SULFATE 0.1 MG/ML 10ML SYR IV PRN (10:10)
[2018-11-27] MEDS ORDERED: fentaNYL citrate 100 MCG/2 ML VIAL ONE ×2 (10:10→11:20)
[2018-11-27] MEDS ORDERED: LIDOCAINE/EPINEPHRINE 1% 20 ML VIAL ONE (10:40)
[2018-11-27] MEDS ORDERED: BACITRACIN OINT 15 GM TUBE ONE (10:40)
[2018-11-27] MEDS ORDERED: LIDOCAINE 4% INH SOLN 4 ML BTL ONE (10:40)
--- NOTE | 2018-11-27 10:46 | History & Physical Bridge Note ---
Date of Service November 27, 2018 History & Physical Bridge Note I have examined the patient, reviewed the History & Physical and in the interval since the performance of the History & Physical I have noted the following changes of clinical significance: no changes noted.
--- NOTE | 2018-11-27 11:33 | Hospitalist Progress Note ---
Date of Service November 27, 2018 Assessment & Plan (1) SIRS (systemic inflammatory response syndrome): (2) Epistaxis: recent sinus surgery s/p 1 unit pRBC increased to 10 patient to undergo packing removal/epistaxis control today in the OR monitor H&H continue IV Clindamycin, Afrin, Cetirizine (3) H/O sinus surgery: Note from admitting physician This is a 33-year-old female who has a significant past medical history of HTN, migraines, seasonal allergies, nephrocalcinosis, history of chronic left maxillary sinusitis and anterior ethmoidal sinusitis, hypertrophy of both inferior nasal turbinates, deviated septum who presents to [facility] [address] ED secondary to epistaxis times 2 days. management as noted above (4) Acute hypokalemia: K 3.7 (5) HTN (hypertension): hold HCTZ for now to prevent deydration (6) DVT prophylaxis: -SCDS/Teds Disposition: D/C to home when able Follow up: PCP Phylicia Shelton upon discharge Subjective ff up for epistaxis seen resting in bed, comfortable states she feels fine overall denies shortness of breath no epistaxis this morning no other symptom Physical Exam Vital Signs (Past 24 Hours): Last Vital Signs Temp 37 C 11/27/18 10:37 Pulse 109 H 11/27/18 10:37 Resp 20 11/27/18 10:37 BP 136/92 11/27/18 10:37 Pulse Ox 99 11/27/18 10:37 Physical Exam: General- oriented x 3, not in distress, speaks in sentences with no effort or accessory muscle use Eyes- anicteric Nose- packing in place- no bleeding Neck- no JVD Lungs- clear breath sounds bilaterally, no rales/wheezes Heart- normal rate, regular rhythm; no murmurs Abdomen- normal bowel sounds, nondistended, soft, nontender Extremities- no pretibial edema, no calf tenderness Neuro- alert, oriented x 3; no gross focal neurologic deficits Skin- warm & dry Results & Data Laboratory Results Laboratory Results - last 24 hr 11/24/18 11/26/18 12:39 17:04 Hgb 10.2 L Hct 30.4 L Crossmatch See Detail
[2018-11-27] MEDS ORDERED: SURGICEL FIBRILLAR HEMOSTAT 1 X 2IN TOP ONE (12:00)
[2018-11-27] MEDS ORDERED: SURGICEL ABSORB HEMOSTAT 2IN X 14IN TOP ONE (12:35)
--- NOTE | 2018-11-27 13:04 | Post Operative Brief Note ---
Immediate Post Op Note v1 Date of Surgery November 27, 2018 Pre & Post Diagnosis Operation Date: 11/27/18 07:15 Pre-Op Diagnosis: Post-operative Sinus Surgery Complication, Epistaxis Post-Op Diagnosis: Post-operative Sinus Surgery Complication, Epistaxis Procedure Operation Date: 11/27/18 07:15 Actual Procedures p Nasal Bleed Control(Not Applicable) - Jarrett Caro MD Surgeon Jarrett Caro MD Auto Hiker None. Estimated Blood Loss 150 Findings Consistent with Post-Op Diagnosis
[2018-11-27] MEDS ORDERED: ROCURONIUM BROMIDE 10 MG/ML 5 ML VIAL ONE (13:16)
[2018-11-27] MEDS ORDERED: LABETALOL HCL IV 5 MG/ML 20ML IV ONE (13:16)
--- NOTE | 2018-11-27 13:25 | Operative Report ---
Post Operative Report Pre & Post Diagnosis Operation Date: 11/27/18 07:15 Pre-Op Diagnosis: Post-operative Nasal and Sinus Surgery Complication, Epistaxis Post-Op Diagnosis: Post-operative Nasal and Sinus Surgery Complication, Epistaxis Procedure Operation Date: 11/27/18 07:15 Actual Procedures Removal of posterior pack with endoscopic control of epistaxis. Surgeon Jarrett Caro MD Uniform Attendant None. Estimated Blood Loss 150 Findings Consistent with Post-Op Diagnosis Specimens None. I attest to the content of the Intraoperative Record and any orders documented therein. Any exceptions are noted below.
[2018-11-27] MEDS: fentaNYL citrate 100 MCG/2 ML VIAL IV PRN ×4 (13:32→13:47)
--- NOTE | 2018-11-27 13:39 | Operative Report ---
Post Operative Report Pre & Post Diagnosis Operation Date: 11/27/18 07:15 Pre-Op Diagnosis: Post-operative Sinus Surgery Complication, Epistaxis Post-Op Diagnosis: Post-operative Sinus Surgery Complication, Epistaxis Procedure Operation Date: 11/27/18 07:15 Actual Procedures Removal of left-sided posterior packing with endoscopic control of epistaxis. Summary of findings: She had generalized oozing from the anterior portion of both inferior turbinates, the posterior left infrerior turbinate, and both sides of the anterior septum. Additionally, she had brisk arterial bleeding from the posterior superior septum over the perpendicular plate of the ethmoid. DESCRIPTION OF THE PROCEDURE Oropharyngeal pack, saturated with saline, was placed. Following uneventful endotracheal ablation, the Sheets used to build her posterior pack along with nasal packing was removed. Both sides of the nose were irrigated with saline solution. Neurosurgical pledgets soaked in oxymetazoline and lidocaine were placed in the nose. They were left in place for several minutes. THE REMAINDER OF THE PROCEDURE WAS DONE WITH SURGICAL HEADLIGHT, SURGICAL LOUPES, AND 30 DEGREE ENDOSCOPE WITH ENDOSCRUB DEVICE USED INTERCHANGEABLY. Starting on the right side of the nose oozing at the anterior portion of the right inferior turbinate was stopped with suction electrocautery. There was also oozing from the right septum at the maxillary crest and also Kiesselbach's plexus. This was all stopped with suction electrocautery, and Fibrillar placed at these site. The right side of the nose, after irrigation saline with bacitracin solution, had fibrillar soaked in Bacitracin solution placed at the jucntion of the maxillary crest and quadrangular cartilage. Then, a 7.5 cm rapid Rhino coated with bacitracin solution was placed in the right side of the nose, and inflated with 5 ml of air. There was no further bleeding from the right side of the nose. The left maxillary sinus was irrigated with Bacitracin solution using a curved suction tip. MucopurUlent material returned and was suctioned away. The left side of the nose had extensive suction electrocautery to control oozing at the the anterior septum in the junction of the quadrangular cartilage with the maxillary crest and at Kiesselbach's plexus. There was brisk arterial bleeding at the posterior superior aspect of the perpendicular plate of the ethmoid. This was largely stopped with suction electrocautery. However, given persistent oozing at this site, Fibrillar, S urgicel, and Nasopore were all soakeed in Bacitracin solution and packed into this site and the anterior ethmoid defect place with neurosurgical pledgets. After slowly removing the neurosurgical pledgets, there was no further bleeding. The left side of the nose was then irrigated with Bacitracin solution. Fibrillar was placed where the bleeding at the junction of the quadrangular cartilage and maxillary crest was controlled on the left, and I placed a 7.5 cm rapid Rhino packing saturated in bacitracin solution beneath all this packing at the bleeding site located at the posterior superior plate of the ethmoid and ethmoid defect. The balloon was then inflated with 5 cm of air. I removed the oropharyngeal packing placed at the start of the case and irrigated the oropharynx out with saline suctioned away by Yankauer suction. There was no blood coming down from the back of the nose to the oropharynx. Mustache dressing was placed. Neurosurgical pledget and sponge count was correct. Patient was extubated and transported to recovery with no bleeding and in no apparent distress. Surgeon Jarrett Caro MD Project Admin None. Estimated Blood Loss 150 Findings Consistent with Post-Op Diagnosis Specimens None. Description of Procedure Oropharyngeal pack, saturated with saline, was placed. Following uneventful endotracheal ablation, the Sheets used to build her posterior pack along with nasal packing was removed. Both sides of the nose were irrigated with saline solution. Neurosurgical pledgets soaked in oxymetazoline and lidocaine were placed in the nose. They were left in place for several minutes. I attest to the content of the Intraoperative Record and any orders documented therein. Any exceptions are noted below.
[2018-11-27] MEDS ORDERED: PROMETHAZINE HCL 6.25 MG in SODIUM CHLORIDE 0.9% 50 ML IV ONE (14:00)
[2018-11-27 14:12] LABS: Platelet Count 228 K/uL (130-400)
--- NOTE | 2018-11-27 14:16 | Anesthesiology Progress Note ---
Date of Service November 27, 2018 Anesthesia Post Procedure Vital Signs Vital Signs: Temp Pulse Pulse Pulse Resp BP BP 11/27/18 14:00 92 H 15 139/101 H 11/27/18 13:50 88 17 146/100 H 11/27/18 13:40 88 18 146/98 H 11/27/18 13:30 91 H 19 137/94 11/27/18 13:20 96 H 19 149/100 H 11/27/18 13:11 96.8 F L 98 H 14 146/94 H 11/27/18 10:40 90 18 146/98 H 11/27/18 10:37 98.6 F 109 H 20 136/92 11/27/18 07:26 98.4 F 107 H 16 121/85 11/27/18 06:19 93 H 11/27/18 04:08 98.8 F 100 H 18 121/80 11/26/18 23:36 99.0 F 94 H 18 134/80 11/26/18 22:20 104 H 11/26/18 19:58 98.6 F 110 H 16 118/77 11/26/18 15:44 99.1 F 107 H 18 117/78 11/26/18 15:37 115 H Pulse Ox 11/27/18 14:00 95 11/27/18 13:50 95 11/27/18 13:40 100 11/27/18 13:30 100 11/27/18 13:20 100 11/27/18 13:11 99 11/27/18 10:40 100 11/27/18 10:37 99 11/27/18 07:26 98 11/27/18 06:19 11/27/18 04:08 98 11/26/18 23:36 98 11/26/18 22:20 11/26/18 19:58 100 11/26/18 15:44 98 11/26/18 15:37 Pain Intensity Nose: Pain Intensity: 6 Notes Mental Status: alert / awake / arousable and participated in evaluation Patient Amnestic to Procedure: Yes Nausea / Vomiting: adequately controlled Pain: adequately controlled Airway Patency, RR, SpO2: stable & adequate BP & HR: stable & adequate Hydration State: stable & adequate Anesthetic Complications: no major complications apparent and Pt Satisfied with anesthetic care
[2018-11-27 14:27] LABS: Partial Thromboplastin Ratio 0.9; Partial Thromboplastin Time 24.2 Seconds (21.0-31.0); Prothrombin Time 10.5 Seconds (9.0-12.0)
[2018-11-27] MEDS ORDERED: HYDROmorphone INJ 0.5 MG/0.5 ML SYR ONE (15:25)
[2018-11-27] MEDS: POTASSIUM CHLORIDE 20 MEQ in SODIUM CHLORIDE 0.9% 1000ML 1,000 ML IV SCH (15:30)
[2018-11-27] MEDS: OXYCODONE HCL IR 5 MG TAB (IMMEDIATE RELEASE) PO PRN (17:13)
[2018-11-27 17:59] LABS: Fibrinogen 536 mg/dl (184-400)
[2018-11-27] MEDS: HYDROmorphone INJ 0.5 MG/0.5 ML SYR IV PRN ×2 (18:58→22:01)
[2018-11-27 20:42] LABS: Hematocrit (blood only) 31.4 % (37-47); Hemoglobin 10.7 g/dL (12.0-16.0)
[2018-11-27] MEDS: ACETAMINOPHEN 1,000 MG/100 ML VIAL IV PRN (20:53)
[2018-11-28] MEDS: HYDROmorphone INJ 0.5 MG/0.5 ML SYR IV PRN ×5 (01:01→20:18)
[2018-11-28] MEDS: CLINDAMYCIN 600 MG in DEXTROSE 5% 50 ML IV SCH ×3 (02:17→18:22)
[2018-11-28] MEDS: POTASSIUM CHLORIDE 20 MEQ in SODIUM CHLORIDE 0.9% 1000ML 1,000 ML IV SCH (02:18)
[2018-11-28] MEDS: OXYCODONE HCL IR 5 MG TAB (IMMEDIATE RELEASE) PO PRN ×2 (02:23→06:47)
[2018-11-28] MEDS ORDERED: CHLORASEPTIC 1.4% SOLN 180 ML BTL PO PRN (06:11)
[2018-11-28 06:34] LABS: Basophils # (auto) 0.01 K/uL (0-0.2); Basophils % (auto) 0.1 %; Eosinophils # (auto) 0.01 K/uL (0-0.5); Eosinophils % (auto) 0.1 %; Hematocrit (blood only) 29.3 % (37-47); Hemoglobin 9.9 g/dL (12.0-16.0); Immature Granulocytes % (auto) 0.7 %; Lymphocytes % (auto) 10.4 %; Mean Corpuscular Hgb Conc 33.8 g/dL (32-36); Mean Corpuscular Volume 88.5 fL (80-100); Mean Platelet Volume 10.3 fL (7.4-10.4); Monocytes # (auto) 0.69 K/uL (0.11-0.59); Monocytes % (auto) 5.1 %; Neutrophils % (auto) 83.6 %; Platelet Count 259 K/uL (130-400); RDW Coefficient of Variation 13.5 % (11.5-14.5); RDW Standard Deviation 42.7 fL (36.4-46.3); Red Blood Count 3.31 M/uL (4.2-5.4); White Blood Count 13.51 K/uL (4.8-10.8)
[2018-11-28] MEDS: POTASSIUM CHLORIDE 40 MEQ in SODIUM CHLORIDE 0.9% 1000ML 1,000 ML IV SCH (07:37)
[2018-11-28] MEDS: ACETAMINOPHEN 1,000 MG/100 ML VIAL IV SCH (07:37)
[2018-11-28] MEDS: CETIRIZINE HCL 10 MG TABLET PO SCH (07:45)
[2018-11-28] MEDS: ACETAMINOPHEN 1,000 MG/100 ML VIAL IV PRN ×2 (07:48→16:18)
[2018-11-28] MEDS ORDERED: AMLODIPINE BESYLATE 5 MG TAB PO ONE ×2 (08:17→14:00)
--- NOTE | 2018-11-28 08:33 | Ears,Nose,Throat Progress Note ---
Date of Service November 28, 2018 Assessment & Plan (1) Epistaxis: No bleeding since surgery, and no bleeding since posterior packing 11/24/18. Hct is 29.3 today following yesterday's surgery. I have spoken with her hospitalist, Dr. Vee, and we discussed the following: A) Hematology consultation. B) Address need for medication for anxiety to go home with this. C) Switch from Clindamycin to a Z-pack. D) BP control at home. She had difficult to control BP in September of 2017. HTN is playing a role in her current epistaxis, as she returned to see me 9 days after surgery with a diastolic of 98. I will return today around 4 PM to remove her right sided packing. Present on Admission?: Yes Subjective She shared that she would like to stop the Oxycontin, and her head feels better since the air in her bilateral nasal packing (7.5 cm Rapid Rhino) was removed. Physical Exam Vital Signs (Past 24 Hours): Last Vital Signs Temp 36.8 C 11/28/18 06:56 Pulse 87 11/28/18 06:56 Resp 19 11/28/18 06:56 BP 153/96 H 11/28/18 06:56 Pulse Ox 95 11/28/18 06:56 Physical Exam: No bleeding from nose or mouth.
[2018-11-28] MEDS: LORazepam 0.5 MG TAB PO PRN ×2 (09:23→22:14)
[2018-11-28 09:42] LABS: BUN Creatinine Ratio 21.5 (10-20); Calcium 8.7 mg/dl (8.5-10.1); Creatinine Clr Calc Pharmacy 150.1 ml/min; Est GFR (African American) 144.6; Est GFR (Non-African American) 124.8
--- NOTE | 2018-11-28 10:01 | Hospitalist Progress Note ---
Date of Service November 28, 2018 Assessment & Plan (1) SIRS (systemic inflammatory response syndrome): (2) Epistaxis: recent sinus surgery s/p 1 unit pRBC increased to 10 Status post packing removal/epistaxis control November 27, 2018 Globin remained stable 9.[address] Mandujano Plan for removal of nasal bone this afternoon Data Entry Analyst consulted for severe, recurrent epistaxis Platelet plan within normal limits, platelet function test also normal PT/INR, PTT also within normal limits Workup for Von Willebrand disease ordered Appreciate hematology consultation (3) H/O sinus surgery: Note from admitting physician This is a 33-year-old female who has a significant past medical history of HTN, migraines, seasonal allergies, nephrocalcinosis, history of chronic left maxillary sinusitis and anterior ethmoidal sinusitis, hypertrophy of both inferior nasal turbinates, deviated septum who presents to [facility] ED secondary to epistaxis times 2 days. management as noted above (4) Acute hypokalemia: Has normalized to 4.0, with HCTZ (5) HTN (hypertension): hold HCTZ for now to prevent hypotension, hypokalemia Amlodipine started, will titrate accordingly Monitor blood pressure closely (6) DVT prophylaxis: -SCDS/Teds Disposition: D/C to home when able Follow up: PCP Phylicia Shelton upon discharge (7) Anxiety: PRN Ativan ordered, seems to be relieving anxiety at this time Continue to monitor Subjective ff up for epistaxis No report of gross epistaxis overnight Seen resting in bed sleeping, her sisters at the bedside States she is having pain from the nasal balloon and surgical site, well controlled by analgesics Denies headache, chest pain, shortness of breath, nausea Was able to eat a few bites of breakfast Positive for anxiety earlier today, improved with as needed Ativan No other symptoms Physical Exam Vital Signs (Past 24 Hours): Last Vital Signs Temp 36.8 C 11/28/18 06:56 Pulse 87 11/28/18 06:56 Resp 19 11/28/18 06:56 BP 153/96 H 11/28/18 06:56 Pulse Ox 95 11/28/18 06:56 Physical Exam: General- oriented x 3, not in distress, speaks in sentences with no effort or accessory muscle use Eyes- anicteric Nose-nasal balloon in place, no bleeding noted Neck- no JVD Lungs-clear, no wheezing, no crackles bilaterally Heart- normal rate, regular rhythm; no murmurs Abdomen- normal bowel sounds, nondistended, soft, nontender Extremities- no pretibial edema, no calf tenderness Neuro- alert, oriented x 3; no gross focal neurologic deficits Skin- warm & dry Results & Data Laboratory Results Laboratory Results - last 24 hr 11/24/18 11/27/18 11/27/18 12:39 19:35 20:34 WBC RBC Hgb 10.7 L Hct 31.4 L MCV MCH MCHC RDW Std Deviation RDW Coeff of Alexander Plt Count MPV Immature Gran % (Auto) Neut % (Auto) Lymph % (Auto) [place] % (Auto) Eos % (Auto) Baso % (Auto) Immature Gran # (Auto) Neut # (Auto) Lymph # (Auto) [place] # (Auto) Eos # (Auto) Baso # (Auto) Sodium Potassium Chloride Carbon Dioxide Anion Gap BUN Creatinine Est Cr Clr Drug Dosing Est GFR ( Amer) Est GFR (Non-Af Amer) BUN/Creatinine Ratio Glucose POC Glucose 110 H Calcium Crossmatch See Detail 11/28/18 11/28/18 06:13 06:23 WBC 13.51 H RBC 3.31 L Hgb 9.9 L Hct 29.3 L MCV 88.5 MCH 29.9 MCHC 33.8 RDW Std Deviation 42.7 RDW Coeff of Alexander 13.5 Plt Count 259 MPV 10.3 Immature Gran % (Auto) 0.7 Neut % (Auto) 83.6 Lymph % (Auto) 10.4 [place] % (Auto) 5.1 Eos % (Auto) 0.1 Baso % (Auto) 0.1 Immature Gran # (Auto) 0.10 H Neut # (Auto) 11.30 H Lymph # (Auto) 1.40 [place] # (Auto) 0.69 H Eos # (Auto) 0.01 Baso # (Auto) 0.01 Sodium 137 Potassium 4.0 Chloride 107 Carbon Dioxide 24 Anion Gap 6.0 BUN 11 Creatinine 0.53 L Est Cr Clr Drug Dosing 150.1 Est GFR ( Amer) 144.6 Est GFR (Non-Af Amer) 124.8 BUN/Creatinine Ratio 21.5 H Glucose 92 POC Glucose Calcium 8.7 Crossmatch
[2018-11-28] MEDS: OXYMETAZOLINE 0.05% 30 ML BTL SCH ×3 (10:42→21:53)
[2018-11-28] MEDS ORDERED: SODIUM CHLORIDE 0.65% NA SOLN 45 ML (OCEAN) ONE (16:42)
--- NOTE | 2018-11-28 16:43 | Ears,Nose,Throat Progress Note ---
Date of Service November 28, 2018 Assessment & Plan (1) Epistaxis: Patient tolerated removal of right nasal packing very well. Left packing left in place. Verbal orders for the following were requested: #1) Nasal saline mist at bedside for use q 1 hour while awake. #2) Afrin 12-Hour: 2 puffs/nostril q 12 hours. I will see the patient in the AM, 11/29/18 prior to her discharge home. Present on Admission?: Yes Subjective Patient expressed interest in having right packing removed. Physical Exam Vital Signs (Past 24 Hours): Last Vital Signs Temp 36.4 C L 11/28/18 16:07 Pulse 105 H 11/28/18 16:07 Resp 18 11/28/18 16:07 BP 132/82 11/28/18 16:07 Pulse Ox 95 11/28/18 16:07 Physical Exam: Right nasal packing removed and right side of nose gently suctioned.
--- NOTE | 2018-11-28 16:45 | Oncology Consultation ---
Date of Consultation November 28, 2018 Assessment & Plan (1) Epistaxis: 33-year-old female, who is admitted for epistaxis which occurred following recent nasal/sinus surgery which required additional endoscopic evaluation, in the past she did not have any bleeding from any sites, no family for any kind of bleeding disorders. She did not have significant bleeding following wisdom teeth extraction or after the delivery x 2. Not on any anticoagulant or antiplatelet agent. Normal PT and PTT, normal platelet count, normal platelet function study. Fibrinogen level normal. She received 1 unit of PRBC. Overall does not appear to be primary bleeding disorder in her case. I would like to rule out of von Willebrand disease (though less likely). Waiting for the blood test results. It may take few more days to get those reports, I will inform her regarding the blood test results as an outpatient basis. Thanks for the consultation. Walker Doyle MD Hem/Onc History of Present Illness Attending Physician: Tyrese Vee MD 34-year-old female, Hematology consultation: evaluation for bleeding disorder. Medical history: - Hypertension, she is on diuretic with hypothyroid - Migrainous headache - Seasonal allergies. - History of chronic left maxillary sinusitis and ethymoidal sinusitis, hypertrophy of the nasal turbinates, deviated nasal septum, she underwent surgical intervention (Left anterior ethmoidectomy, Left maxillary sinusotomy with removal of tissue, Septoplasty, Bilateral inferior turbinate reduction by Dr. Caro) in late October 2018, she did not bleeding complications following that, 3 to 4 days after that she had some bleeding complications which required another evaluation by ENT specialist Dr. Caro, now admitted in hospital for ongoing epistaxis resulting in anemia, received 1 unit of PRBC. I saw her at bedside, she was sitting comfortably in the bed, had another endoscopic evaluation on 11/27/2018, found to have oozing of the blood from the anterior portion of the inferior turbinate, posterior left inferior turbinate, both sides of the anterior septum. No bleeding since yesterday. - She had wisdom teeth extraction in the past without any bleeding complications - She was 2 occasions, had normal vaginal delivery, did not have unusual bleeding complications following that - She says she has some heavy menstrual period during the 1st 2 days. - She denies any bruising or easy bleeding from either sites. - She was not on aspirin or NSAID treatment lately. - No other systemic symptoms. No fever. - She is not on any anticoagulant treatment at home. - She is not on any herbal medications at home. Allergies Allergy/AdvReac Type Severity Reaction Status Date / Time cefuroxime [From Ceftin] Allergy Intermediate Hives Verified 11/24/18 13:06 ciprofloxacin [From Cipro] Allergy Intermediate Hives Verified 11/24/18 13:06 doxycycline Allergy Intermediate Hives Verified 11/24/18 13:06 Penicillins Allergy Intermediate Hives Verified 11/24/18 13:06 shellfish derived Allergy Intermediate Hives Verified 11/24/18 13:06 sulfamethoxazole Allergy Intermediate Hives Verified 11/24/18 13:06 [From Bactrim] trimethoprim [From Bactrim] Allergy Intermediate Hives Verified 11/24/18 13:06 garlic Allergy Mild Rash Verified 11/24/18 13:06 Home Medications Home Medications Medication Instructions Recorded Confirmed Type cetirizine [Zyrtec] 10 mg PO DAILY 11/23/18 11/24/18 History hydrochlorothiazide 25 mg PO DAILY 11/23/18 11/24/18 History magnesium 250 mg PO DAILY 11/23/18 11/24/18 History multivitamin 1 tab PO DAILY 11/23/18 11/24/18 History Patient History Medical History HTN (hypertension) (Chronic) Nephrocalcinosis (Chronic) Chronic sinusitis (Chronic) Deviated septum (Chronic) Epistaxis (Resolved) Anemia Obese Surgical History H/O sinus surgery (Chronic) 11/15/18 1) Nasal and Sinus Surgical Endoscopy using image guidance resulting in: A) Left anterior ethmoidectomy (54792) B) Left maxillary sinusotomy with removal of tissue (63651) #2) Septoplasty (98075) #3) Bilateral inferior turbinate reduction (87903-26) Family History Mother Hypertension Father Hypertension Sister Hypertension Stroke Social History Preferred Language: Sinhala Communication Ability: Effective Beliefs That Will Affect Care: None marital status details: Engaged Current Living Situation: Significant Other Other Information That Helps Us Care for You: No Feels Safe at Home: Yes Safety Concerns: Feels Safe At This Time Smoking Status: Never smoker Hx Alcohol Use: No Hx Substance Use: No Review of Systems GENERAL: No recent change in weight, no weakness, no fatigue, no fever, sweats or chills. SKIN: No skin rash, no bruising. HEAD: No headache, no dizziness. EYES: No change in the vision, no diplopia, EARS: No earache ,no tinnitus, NOSE: epistaxis for the last 8 to 10 days, , MOUTH: No sores, no dysphagia, no hoarseness of voice, NECK: No lumps, No swelling in thyroid area. No stiffness. PULMONARY: No cough, No shortness of breath, no hemoptysis, no chest pain, No wheezing. CARDIOVASCULAR: No anginal chest pain, no PND, no orthopnea. No palpitation, no leg edema. No syncope. GASTRIINTESTINAL: No abdominal pain, no nausea or vomiting. No diarrhea, No constipation. No blood in stool or black tarry stools. No abdominal distention. UROLOGIC: No burning urination. No hematuria. MUSCULOSKELETAL: No joint pain, No joint swelling, no muscle weakness. HEMATOLOGIC: No anemia, no bleeding disorder, No bruising. No history of blood transfusion. NEUROLOGIC: No seizures, no focal weakness, no speech difficulty, No memory disturbances. No tingling or numbness of the extremities. PSYCHRIATRIC: No depression. No anxiety. No psychosis. Physical Exam Vital Signs (Past 24 Hours): Last Vital Signs Temp 36.4 C L 11/28/18 16:07 Pulse 105 H 11/28/18 16:07 Resp 18 11/28/18 16:07 BP 132/82 11/28/18 16:07 Pulse Ox 95 11/28/18 16:07 On exam: - Alert and oriented x3, well built woman, not in any distress. - HEENT: no icterus, no pallor, Throat: Normal. - Neck: No palpable cervical lymphadenopathy. - Chest: clear to auscultation. - Abdomen: soft, nontender, no hepatomegaly, no splenomegaly. - No focal neuro deficit. - Extremities: no finger clubbing, no leg edema. Results & Data Laboratory Results Blood workup done on 11/28/2018: - WBC 13,500, H&H of 9.9/29.3, Platelet count of 259,000. - BUN/creatinine: 11/0.5,. - Normal liver function (11/24/2018). - PT > 10.6, PTT 23.4 (11/24/2018) - PT 10.5, PTT 24.2 (11/27/2018) - Fibrinogen level > 536 which is on the higher side - Platelet function study: closing time with epinephrine > 113 seconds which is in the normal range. - Blood workup for von Willebrand's disease > Pending.
[2018-11-28] MEDS ORDERED: SODIUM CHLORIDE 0.65% NA SOLN 45 ML (OCEAN) PRN (17:00)
[2018-11-28] MEDS: ACETAMINOPHEN 325 MG TAB PO PRN (22:13)
[2018-11-29] MEDS: HYDROmorphone INJ 0.5 MG/0.5 ML SYR IV PRN (03:33)
[2018-11-29] MEDS: CLINDAMYCIN 600 MG in DEXTROSE 5% 50 ML IV SCH ×2 (03:34→10:19)
[2018-11-29 06:40] LABS: Basophils # (auto) 0.02 K/uL (0-0.2); Basophils % (auto) 0.2 %; Eosinophils # (auto) 0.57 K/uL (0-0.5); Eosinophils % (auto) 5.1 %; Hematocrit (blood only) 29.5 % (37-47); Hemoglobin 9.9 g/dL (12.0-16.0); Immature Granulocytes # (auto) 0.09 K/uL (0.00-0.02); Immature Granulocytes % (auto) 0.8 %; Lymphocytes % (auto) 14.3 %; Mean Corpuscular Hgb Conc 33.6 g/dL (32-36); Mean Corpuscular Volume 88.1 fL (80-100); Mean Platelet Volume 10.2 fL (7.4-10.4); Monocytes % (auto) 6.3 %; Neutrophils # (auto) 8.22 K/uL (1.4-6.5); Neutrophils % (auto) 73.3 %; Platelet Count 263 K/uL (130-400); RDW Standard Deviation 43.6 fL (36.4-46.3); Red Blood Count 3.35 M/uL (4.2-5.4)
[2018-11-29 07:03] LABS: Ferritin 68.5 ng/ml (8-388)
[2018-11-29 08:17] LABS: Folate (Folic Acid) 20.21 ng/ml (>5.38)
[2018-11-29] MEDS: ACETAMINOPHEN 325 MG TAB PO PRN (09:07)
[2018-11-29] MEDS: CETIRIZINE HCL 10 MG TABLET PO SCH (09:09)
[2018-11-29] MEDS: OXYMETAZOLINE 0.05% 30 ML BTL SCH (09:09)
[2018-11-29] MEDS ORDERED: AMLODIPINE BESYLATE 5 MG TAB PO STA (10:15)
[2018-11-29 10:24] LABS: BUN Creatinine Ratio 26.1 (10-20); Calcium 8.6 mg/dl (8.5-10.1); Creatinine Clr Calc Pharmacy 144.5 ml/min; Est GFR (African American) 143.7; Potassium 3.3 mmol/L (3.5-5.1)
[2018-11-29] MEDS ORDERED: FERROUS SULFATE 325 MG TAB PO SCH (11:30)
--- NOTE | 2018-11-29 12:47 | Hospitalist Progress Note ---
Date of Service November 29, 2018 Assessment & Plan (1) SIRS (systemic inflammatory response syndrome): (2) Epistaxis: recent sinus surgery s/p 1 unit pRBC increased to 10 Status post packing removal/epistaxis control November 27, 2018 Globin remained stable 9.[address] Mandujano Plan for removal of nasal bone this afternoon Knockout Worker consulted for severe, recurrent epistaxis Platelet plan within normal limits, platelet function test also normal PT/INR, PTT also within normal limits Workup for Von Willebrand disease ordered Appreciate hematology consultation -- no recurrence since procedure discussed with Dr. Caro, she has an appointment to see him tomorrow for now, continue Afrin, Cetirizine, Nasal Saline spray discussed with patient, no adverse reactions to Tramadol before, will prescribe PRN Tramadol for severe pain in addition to Tylenol which she takes and usually helps will also prescribe PRN Ativan 0.5mg q6h for anxiety (3) H/O sinus surgery: Note from admitting physician This is a 33-year-old female who has a significant past medical history of HTN, migraines, seasonal allergies, nephrocalcinosis, history of chronic left maxillary sinusitis and anterior ethmoidal sinusitis, hypertrophy of both inferi or nasal turbinates, deviated septum who presents to [facility] ED secondary to epistaxis times 2 days. management as noted above (4) Acute hypokalemia: Has normalized to 4.0, with HCTZ d/c HCTZ, started Amlodipine for BP (5) HTN (hypertension): hold HCTZ for now to prevent hypotension, hypokalemia Amlodipine started d/c plan: Amlodipine 7.5mg po daily ff up with PCP Monday 12/04 (6) DVT prophylaxis: -SCDS/Teds Disposition: DC home ff up with Dr. Mcleod 12/[address] Caro 11/30 (7) Anxiety: PRN Ativan ordered for anxiety mostly related to present medical condition advised to take medications as directed, no driving, be carefuly with ambulation, drink plenty of fluids patient will have company at home as per family member at bedside case and plan of care discussed with patient and her family member at bedsde at length, in detail they are understanding and agreeable with plan of care Subjective ff up for epistaxis resting in bed, comfortable no recurrence of epistaxis pain well controlled denies shortness of breath, chest pain, headache, dizziness no other symptoms states she is ready and would like to be discharged today Physical Exam Vital Signs (Past 24 Hours): Last Vital Signs Temp 36.7 C 11/29/18 11:36 Pulse 107 H 11/29/18 11:36 Resp 19 11/29/18 11:36 BP 126/77 11/29/18 11:36 Pulse Ox 97 11/29/18 11:36 Physical Exam: General- oriented x 3, not in distress, speaks in sentences with no effort or accessory muscle use Eyes- anicteric Nose- balloon in place left nostril, no bleeding noted oral exam essentially normal Neck- no JVD Lungs- clear breath sounds bilaterally, no rales/wheezes Heart- normal rate, regular rhythm; no murmurs Abdomen- normal bowel sounds, nondistended, soft, nontender Extremities- no pretibial edema, no calf tenderness Neuro- alert, oriented x 3; no gross focal neurologic deficits Skin- warm & dry Results & Data Laboratory Results Laboratory Results - last 24 hr 11/29/18 11/29/18 11/29/18 06:21 06:21 06:21 WBC 11.20 H RBC 3.35 L Hgb 9.9 L Hct 29.5 L MCV 88.1 MCH 29.6 MCHC 33.6 RDW Std Deviation 43.6 RDW Coeff of Alexander 14.0 Plt Count 263 MPV 10.2 Immature Gran % (Auto) 0.8 Neut % (Auto) 73.3 Lymph % (Auto) 14.3 [place] % (Auto) 6.3 Eos % (Auto) 5.1 Baso % (Auto) 0.2 Immature Gran # (Auto) 0.09 H Neut # (Auto) 8.22 H Lymph # (Auto) 1.60 [place] # (Auto) 0.70 H Eos # (Auto) 0.57 H Baso # (Auto) 0.02 Sodium Potassium Chloride Carbon Dioxide Anion Gap BUN Creatinine Est Cr Clr Drug Dosing Est GFR ( Amer) Est GFR (Non-Af Amer) BUN/Creatinine Ratio Glucose Calcium Iron 22 L TIBC 271 Transferrin 221 Ferritin 68.5 Vitamin B12 1039 H Folate 20.21 11/29/18 06:25 WBC RBC Hgb Hct MCV MCH MCHC RDW Std Deviation RDW Coeff of Alexander Plt Count MPV Immature Gran % (Auto) Neut % (Auto) Lymph % (Auto) [place] % (Auto) Eos % (Auto) Baso % (Auto) Immature Gran # (Auto) Neut # (Auto) Lymph # (Auto) [place] # (Auto) Eos # (Auto) Baso # (Auto) Sodium 138 Potassium 3.3 L D Chloride 104 Carbon Dioxide 28 Anion Gap 6.0 BUN 14 Creatinine 0.54 L Est Cr Clr Drug Dosing 144.5 Est GFR ( Amer) 143.7 Est GFR (Non-Af Amer) 124.0 BUN/Creatinine Ratio 26.1 H Glucose 89 Calcium 8.6 Iron TIBC Transferrin Ferritin Vitamin B12 Folate
--- NOTE | 2018-11-29 13:15 | Discharge Summary ---
Date of Service November 29, 2018 Admission HPI Per Admitting Provider This is a 33-year-old female who has a significant past medical history of HTN, migraines, seasonal allergies, nephrocalcinosis, history of chronic left maxillary sinusitis and anterior ethmoidal sinusitis, hypertrophy of both inferior nasal turbinates, deviated septum who presents to [facility] ED secondary to epistaxis times 2 days. On 11/15/18 patient underwent left anterior ethmoidectomy, left maxillary sinusotomy, septoplasty and bilateral inferior turbinate reduction. She was doing well postoperatively until postop day #7. She followed up with Dr. Caro and had her septal splints removed. She underwent endoscopic sinus debridement. At the time left inferior turbinate had a removal of a clot with silver nitrate application to the turbinate. The nose was sprayed with Afrin and lidocaine spray. Moderate crusting at the left ethmoid and maxillary sinusotomy sites were noted. She subsequently developed epistaxis which required her to return to his office. Again bleeding had stopped, blood pressure was stable but she was mildly tachycardic. She returned home. Unfortunately pt returned to [facility] clinic today. Rapid response was called in office secondary to significantly low blood pressure 80s over 50s with heart rates above 150s and epistaxis per Dr. Caro. She had a posterior nasal packing placed in office by Dr. Caro and sent to ED for hospitalization. Currently patient is complaining of significant nasal discomfort, 07/31. For now the bleeding has ceased. Further she complains of sore throat, decreased appetite, poor p.o. intake over the past 48 hours. She denies any fever, chills, sweats, lightheadedness, dizziness, chest pain, shortness of breath, palpitations, nausea, emesis, abdominal pain, change in bowel or urinary habits. Family is at bedside and very concerned. Admission Exam Per Admitting Provider Vital Signs (Past 24 Hours): Last Vital Signs Temp 36.9 C 11/24/18 12:12 Pulse 123 H 11/24/18 14:31 Resp 18 11/24/18 14:31 BP 129/88 11/24/18 14:31 Pulse Ox 99 11/24/18 14:31 Physical Exam: Gen: WD/WN, F, + distress secondary to pain/anxiety, lying in bed, pleasant, difficulty conversing given nasal packing Head: Normocephalic, Atraumatic Eyes: Sclera normal, no conjunctival injection, PERRLA, EOMI ENT: Gross hearing intact, + L nare nasal packing, mucous membranes dry Neck: supple, no adenopathy, No JVD, no bruit, Resp: Clear to auscultation b/l, no wheeze, rales, rhonchi. Normal insp/exp effort, no accessory muscle use CV: tachycardic rate, regular rhythm, no murmur, rub, gallop, or ectopy Abd: +BS x 4, soft, nontender, nondistended Musculoskeletal: moves extremities active rom x 4, strength intact, good data center technician strength Extremities: No edema bilaterally Skin: warm, moist, no rash, negative turgor, cap refill < 2sec Neuro: Alert and oriented x 3, speech normal, good mood/affect, cran nerve 2-12 intact grossly : deferred Principal Diagnosis RECURRENT EPISTAXIS Discharge Exam Vital Signs (Past 24 Hours): Last Vital Signs Temp 36.7 C 11/29/18 11:36 Pulse 107 H 11/29/18 11:36 Resp 19 11/29/18 11:36 BP 126/77 11/29/18 11:36 Pulse Ox 97 11/29/18 11:36 Physical Exam: General- oriented x 3, not in distress, speaks in sentences with no effort or accessory muscle use Eyes- anicteric Nose- balloon in place left nostril, no bleeding noted oral exam essentially normal Neck- no JVD Lungs- clear breath sounds bilaterally, no rales/wheezes Heart- normal rate, regular rhythm; no murmurs Abdomen- normal bowel sounds, nondistended, soft, nontender Extremities- no pretibial edema, no calf tenderness Neuro- alert, oriented x 3; no gross focal neurologic deficits Skin- warm & dry Discharge Data Allergies Allergy/AdvReac Type Severity Reaction Status Date / Time cefuroxime [From Ceftin] Allergy Intermediate Hives Verified 11/24/18 13:06 ciprofloxacin [From Cipro] Allergy Intermediate Hives Verified 11/24/18 13:06 doxycycline Allergy Intermediate Hives Verified 11/24/18 13:06 Penicillins Allergy Intermediate Hives Verified 11/24/18 13:06 shellfish derived Allergy Intermediate Hives Verified 11/24/18 13:06 sulfamethoxazole Allergy Intermediate Hives Verified 11/24/18 13:06 [From Bactrim] trimethoprim [From Bactrim] Allergy Intermediate Hives Verified 11/24/18 13:06 garlic Allergy Mild Rash Verified 11/24/18 13:06 Consultations 11/24/18 13:58 ED Decision to Admit Stat 11/24/18 16:36 Consult Otolaryngology (Head and Neck) Routine 11/27/18 16:20 Consult Hematology Routine Procedures Performed Operation Date: 11/27/18 07:15 Actual Procedures p Nasal Bleed Control(Not Applicable) - Jarrett Caro MD Hospital Course (1) Epistaxis: history of recent sinus surgery hg decreased to 7 s/p 1 unit pRBC increased to [address] Caro Status post packing removal/epistaxis control November 27, 2018 Hg remained stable 9.9 covered with IV Clindamycin x 5 days -- no recurrence since procedure discussed with Dr. Caro, she has an appointment to see him tomorrow for now, continue Afrin, Cetirizine, Nasal Saline spray Azithromycin x 5 days discussed with patient, no adverse reactions to Tramadol before, will prescribe PRN Tramadol for severe pain in addition to Tylenol which she takes and usually helps will also prescribe PRN Ativan 0.5mg q6h for anxiety -- Dr. Walker Doyle Windscreen Fitter consulted for severe, recurrent epistaxis Platelet level within normal limits, platelet function test also normal PT/INR, PTT also within normal limits Workup for Von Willebrand disease ordered, tests pending--> follow up (2) H/O sinus surgery: Note from admitting physician This is a 33-year-old female who has a significant past medical history of HTN, migraines, seasonal allergies, nephrocalcinosis, history of chronic left maxillary sinusitis and anterior ethmoidal sinusitis, hypertrophy of both inferior nasal turbinates, deviated septum who presents to [facility] ED secondary to epistaxis times 2 days. management as noted above (3) Acute hypokalemia: Has normalized to 4.0, with HCTZ d/c HCTZ, started Amlodipine for BP (4) HTN (hypertension): hold HCTZ for now to prevent hypotension, hypokalemia Amlodipine started d/c plan: Amlodipine 7.5mg po daily ff up with PCP Monday 12/04 (5) DVT prophylaxis: -SCDS/Teds Disposition: DC home ff up with Dr. Mcleod 12/[address] Caro 11/30 (6) Anxiety: PRN Ativan ordered for anxiety mostly related to present medical condition advised to take medications as directed, no driving, be carefuly with ambulation, drink plenty of fluids patient will have company at home as per family member at bedside case and plan of care discussed with patient and her family member at [facility] at length, in detail they are understanding and agreeable with plan of care Total Time Total Time Spent Total Time Spent (In Minutes): 45 mins Discharge Plan Discharge Items Patient Disposition: Home - Self-Care Reason For Visit: POST OP SINUS SURGERY COMPLICATION,EPISTAXIS Discharge Diagnosis: RECURRENT EPISTAXIS Discharge Goals: Diagnostic testing and Therapeutic intervention Activity: As commented below Activity Comment: NO HEAVY EXERTION, INCREASE ACTIVITY GRADUALLY TOLERATED Lifting: Wait until after follow-up appointment Exercise/Sports: Wait until after follow-up appointment Driving/Machine Use Comment: NO DRIVING UNTIL RE-EVALUATED BY ENT, PRIMARY CARE PHYSICIAN Non-emergency contact: Primary Care Provider and Surgeon Call non-emergency contact if: you have any medication questions, your symptoms worsen, your pain is worsening, your pain is unusual for you, your pain is concerning for you, your wound has increased redness, your wound has increased drainage and your wound pain has increased Diet: Heart Healthy Addtl Provider Instructions: FOLLOW UP WITH DR. CARO TOMORROW 11/30/18 SCHEDULED. FOLLOW UP WITH DR. MCLEOD AT [facility] ON Tuesday12/04/18 AT 2:[address], OPERATE MACHINERIES, BATHE IN THE TUB IF TAKING TRAMADOL AND/OR ATIVAN. DO NOT TAKE NSAIDS LIKE IBUPROFEN, NAPROXEN. DO NOT EXCEED MORE THAN 3,000 MG OF TYLENOL PER DAY. PLEASE REVIEW YOUR NEW MEDICATION LIST AND FOLLOW INSTRUCTIONS CAREFULLY. DRINK PLENTY OF FLUIDS. TAKE A PROBITIC DAILY AND EAT YOGURT DAILY WHILE TAKING ANTIBIOTICS AND AT LEAST 1 WEEK AFTER COMPLETION OF ANTIBIOTIC THERAPY. CALL YOUR PRIMARY CARE PHYSICIAN IMMEDIATELY IF WITH WEAKNESS, DIZZINESS. Prescriptions: New acetaminophen [Mapap (acetaminophen)] 325 mg Tablet 650 mg PO Q4H PRN (Reason: pain) 7 Days Qty: 14 RF: 0 ferrous sulfate 325 mg (65 mg iron) Tablet,Delayed Release (Dr/Ec) 325 mg PO BIDM 30 Days Qty: 60 RF: 2 lorazepam 0.5 mg Tablet 0.5 mg PO Q6H PRN (Reason: anxiety) Qty: 10 RF: 0 tramadol 50 mg tablet 50 mg PO Q6H PRN (Reason: severe pain) Qty: 10 RF: 0 docusate sodium [Colace] 100 mg capsule 100 mg PO BID 10 Days Qty: 20 RF: 1 amlodipine 5 mg tablet 7.5 mg PO DAILY 30 Days Qty: 45 RF: 1 potassium chloride 20 mEq tablet,ER particles/crystals 20 meq PO DAILY 7 Days Qty: 8 RF: 0 Continued multivitamin Tablet 1 tab PO DAILY RF: 0 cetirizine [Zyrtec] 10 mg Tablet 10 mg PO DAILY RF: 0 magnesium 250 mg Tablet 250 mg PO DAILY RF: 0 Discontinued hydrochlorothiazide 25 mg Tablet 25 mg PO DAILY RF: 0 Stand-Alone Forms: [facility] Discharge Orders: Discharge Order (Routine); Ordered 11/29/18 Ordered By: Tyrese Vee Admission Data Admit Date/Time: 11/24/18 15:13 Attending Provider: Tyrese Vee Admit Provider: Crystal Sneed Primary Care Provider: Phylicia Shelton Other Providers: Jarrett Caro ; Walker Doyle Service: Telemetry Other Interventions: Discharge Summary Assessment (RN) Last Done: 11/29/18 12:51 DC Date/Time DO NOT enter until pt leaves facility: 11/29/18 13:28
[2018-11-30 09:47] LABS: Factor VIII Act Send to GMC 221 % (55 - 145)
--- NOTE | 2018-11-30 11:01 | Coding Query ---
CODING QUERY To promote full compliance with coding requirements relating to patient care, provider participation is requested in all cases of coremaker supervisor uncertainty. Please assist us with the question(s) below: Coding Question(s): The Consultation on 11/28/18 documents, "I would like to rule out of von Willebrand disease (though less likely). Waiting for the blood test results.". Please specify below, in your clinical opinion, regarding any finding on the results when available. ( ) Possible Von Willebrand Disease ( x ) Von Willebrand Disease is Ruled-Out Physician's Response(s): Thank you Rosalie Raymundo Principal Diagnosis: "that condition established after study, to be chiefly responsible for occasioning the admission of the patient to the hospital for care." Co-Existing Principal Diagnosis: "when two or more diagnoses equally meet the criteria for principal diagnosis as determined by the circumstances of admission, diagnostic work up, and/or therapy provided, and the Alphabetic Index, Tabular List, or another coding guideline does not provide sequencing direction, any one of the diagnoses may be sequenced first." "When the physician has documented what appears to be a current diagnosis in the body of the record, but has not included the diagnosis in the final diagnostic statement, the physician should be asked whether the diagnosis should be added." (Source Coding [facility] 2 QTR90. p3-4) THUY
--- NOTE | 2018-11-30 11:07 | Coding Query ---
ANEMIA To promote full compliance with coding requirements relating to patient care, physician participation is requested in all cases of hatch boss uncertainty. Please assist us with the question(s) below: Coding Question(s): The record reflects the following clinical findings: There is documentation of Anemia on ER H&P and documentation on 11/25/18 Ears, Nose, Throat PN of drop in HCT is due to dilution from fluid resuscitation from massive blood loss and documentation on 11/25 Progress Note of Hemoglobin minimally down to 8.9 and is complicated by use of normal saline. Please clarify below, in your clinical opinion, regarding Anemia. If these findings are indicative of anemia, please specify the known or suspected type by placing an "X" within the parenthesis (x). If other, please document type. Examples are: (X ) Acute blood loss anemia ( ) Acute Postoperative blood loss anemia ( ) Acute postoperative anemia due to dilutional fluids ( ) Chronic blood loss anemia ( ) Anemia of chronic disease ( ) Aplastic anemia ( ) Anemia due to renal disease ( ) Anemia in neoplastic disease ( ) Iron deficient anemia ( ) Anemia, unspecified or other ( ) Other: (please specify) ( ) Unable to determine Thank you Rosalie Raymundo [facility]
[2018-11-30 14:39] LABS: Ristocetin Cofactor 111 % (42-200); Von Willebrand Factor Antigen 103 % (50-217)
== END 2018-11-29 13:28 | disposition home or self-care (01) | DRG 908 ==
LOC: ED 12:07 → SUATTDRO 15:13 → 2S 15:13 → 2E 11-25 13:33